=== PATIENT | female | born 1965 | race Caucasian/White ===

== ENCOUNTER → 2017-06-03 | Outpatient (CLI) | payer BC ==
[~2017-06-03] MED LIST: CLC100 PO; DRV100 PO; PROM25TA PO
[2017-06-03 12:36] LABS: BLOOD UREA NITROGEN 26 mg/dl (7-18); BUN/CREATININE RATIO 34.4 (10-20); CALCIUM 9.8 mg/dl (8.5-10.1); CARBON DIOXIDE 27 mmol/L (21-32); CHLORIDE 108 mmol/L (98-107); CREATININE 0.75 mg/dl (0.60-1.20); GLUCOSE 92 mg/dl (70-99); POTASSIUM 4.1 mmol/L (3.5-5.1); SODIUM 140 mmol/L (136-145)
[2017-06-03 13:00] LABS: LYME DISEASE AB IGG NEG (NEG); LYME DISEASE AB IGM NEG (NEG)
== END | disposition home or self-care (01) ==
LOC: C.LABPBG 07:54
PROVIDERS: ATTEND Chiropractor
DX: A69.20 Lyme disease, unspecified (principal)

== ENCOUNTER → 2017-06-11 | Outpatient (CLI) | payer BC ==
[2017-06-11 12:14] LABS: BASO % 0.5 %; BASO ABS # 0.04 K/uL (0-0.2); COMPLETE YES; EOS % 2.5 %; HEMATOCRIT 42.7 % (37-47); IG% 0.3 %; LYMPH % 41.7 %; LYMPH ABS # 3.05 K/uL (1.2-3.4); MEAN CELL VOLUME 93.8 fL (80-100); MEAN CORPUSCULAR HEMOGLOBIN 31.4 pg (25-34); MEAN CORPUSCULAR HGB CONC 33.5 g/dl (32-36); MEAN PLATELET VOLUME 9.8 fL (7.4-10.4); MONO % 4.5 %; NEUT % 50.5 %; PLATELET COUNT 245 K/uL (130-400); RED BLOOD COUNT 4.55 M/uL (4.2-5.4); WHITE BLOOD COUNT 7.32 K/uL (4.8-10.8)
[2017-06-11 12:43] LABS: ALB/GLOB RATIO 1.4 (0.9-2); ALT/SGPT 33 U/L (12-78); AST/SGOT 16 U/L (15-37); BLOOD UREA NITROGEN 17 mg/dl (7-18); BUN/CREATININE RATIO 21.6 (10-20); CALCIUM 9.5 mg/dl (8.5-10.1); CARBON DIOXIDE 28 mmol/L (21-32); CHLORIDE 109 mmol/L (98-107); CREATININE 0.77 mg/dl (0.60-1.20); GLUCOSE 89 mg/dl (70-99); POTASSIUM 3.7 mmol/L (3.5-5.1); SODIUM 141 mmol/L (136-145); URIC ACID 4.2 mg/dl (2.6-7.2)
[2017-06-11 12:54] LABS: ALKALINE PHOSPHATASE 91 U/L (45-117); C-REACTIVE PROTEIN < 0.29 mg/dl (0-0.29); THYROID STIMULATING HORMONE 0.675 uIu/ml (0.300-4.500)
[2017-06-11 18:54] LABS: LYME DISEASE AB IGG NEG (NEG); LYME DISEASE AB IGM NEG (NEG)
--- NOTE | 2017-06-28 06:41 | CODING QUERY MEDICAL NECESSITY ---
SUPPORTING DIAGNOSIS NEEDED Dr. Lockwood, A supporting diagnosis is required for the test/procedure performed on this patient in order for us to be reimbursed by the patient's insurance. Please provide a supporting diagnosis for the following test/procedure listed below next to the test name along with your signature. *If there is no additional diagnosis for this patient that would support the following test/procedure please document that below next to the test/procedure. Test(s)/Procedure(s) that require a supporting diagnosis: * ([id number]) VITAMIN D ASSAY DIAGNOSIS: * ([id number]) B12 VITAMIN LEVEL DIAGNOSIS: DATE OF SERVICE: 06/11/17 Provider Signature: Date: Thank you Darwin Mejia [facility] Information Management Once completed, please kindly fax back to [phone] For questions please call [phone]
== END | disposition home or self-care (01) ==
LOC: C.LABPBG 10:52
PROVIDERS: ATTEND Family Medicine
DX: M25.50 Pain in unspecified joint (principal); R53.83 Other fatigue; E55.9 Vitamin D deficiency, unspecified

== ENCOUNTER → 2017-06-18 | Outpatient (CLI) | payer BC | END | disposition home or self-care (01) | LOC: C.LABPBG 14:37 | PROVIDERS: ATTEND Family Medicine | DX: R76.8 Other specified abnormal immunological findings in serum (principal); J02.9 Acute pharyngitis, unspecified ==

== ENCOUNTER → 2017-07-09 | Outpatient (CLI) | payer BC | END | disposition home or self-care (01) | LOC: C.LABPBG 12:24 | PROVIDERS: ATTEND Family Medicine | DX: M25.50 Pain in unspecified joint (principal); Z86.79 Personal history of other diseases of the circulatory system ==

== ENCOUNTER → 2018-01-06 | Outpatient (CLI) | payer BC ==
[2018-01-06 16:54] LABS: BASO % 0.3 %; BASO ABS # 0.03 K/uL (0-0.2); EOS % 1.5 %; EOS ABS # 0.15 K/uL (0-0.5); HEMATOCRIT 44.2 % (37-47); IG# 0.03 K/uL (0.00-0.02); LYMPH ABS # 2.85 K/uL (1.2-3.4); MEAN CELL VOLUME 96.9 fL (80-100); MEAN CORPUSCULAR HEMOGLOBIN 32.9 pg (25-34); MEAN CORPUSCULAR HGB CONC 33.9 g/dl (32-36); MEAN PLATELET VOLUME 9.9 fL (7.4-10.4); MONO % 6.2 %; MONO ABS # 0.61 K/uL (0.11-0.59); NEUT % 62.7 %; NEUT ABS # 6.15 K/uL (1.4-6.5); PLATELET COUNT 251 K/uL (130-400); RED CELL DISTRIBUTION WIDTH CV 13.4 % (11.5-14.5); RED CELL DISTRIBUTION WIDTH SD 47.4 fL (36.4-46.3); WHITE BLOOD COUNT 9.82 K/uL (4.8-10.8)
[2018-01-06 17:23] LABS: BLOOD UREA NITROGEN 17 mg/dl (7-18); CALCIUM 9.5 mg/dl (8.5-10.1); CARBON DIOXIDE 26 mmol/L (21-32); CREATININE 0.78 mg/dl (0.60-1.20); GLUCOSE 93 mg/dl (70-99); POTASSIUM 3.6 mmol/L (3.5-5.1); SODIUM 140 mmol/L (136-145)
== END | disposition home or self-care (01) ==
LOC: C.LABPBG 12:58
PROVIDERS: ATTEND Orthopaedic Surgery Orthopaedic Surgery of the Spine
DX: M54.2 Cervicalgia (principal)

== ENCOUNTER 2018-01-20 05:47 | Observation (INO) | payer BC ==
[2018-01-14 13:27] VITALS: BMI 29.0
[~2018-01-20] VITALS: Ht 160 cm; Wt 75.0 kg
[2018-01-20] VITALS (15 sets, daily range): BP systolic 94–139; BP diastolic 56–78; PULSE 63–98; TEMP 36.2–36.8; O2SAT 90–100; Ht 160 cm; Wt 75.0 kg
[2018-01-20] MEDS ORDERED: GABAPENTIN 900 MG PO SCH (06:00)
[2018-01-20] MEDS ORDERED: LACTATED RINGER'S 1000ML 1,000 ML IV SCH (06:00)
[2018-01-20] MEDS ORDERED: ACETAMINOPHEN 500 MG TAB PO SCH (06:00)
[2018-01-20] MEDS ORDERED: CEFAZOLIN 1000MG IV PUSH 7.5 ML IV SCH (06:00)
[2018-01-20] MEDS ORDERED: CeleBREX 200 MG CAP PO SCH (06:00)
[2018-01-20] MEDS ORDERED: FENTANYL CITRATE INJ 50 MCG/1 ML 2 ML VIAL ONE ×2 (06:36→08:33)
[2018-01-20] MEDS ORDERED: MIDAZOLAM HCL 1 MG/ML 2ML VIAL ONE (06:36)
[2018-01-20] MEDS ORDERED: SODIUM CHLORIDE 0.9% PF 50 ML VIAL ONE (07:04)
[2018-01-20] MEDS ORDERED: BACITRACIN 50000 UNIT VIAL ONE (07:04)
[2018-01-20] MEDS ORDERED: EpHEDrine SULFATE INJ 50 MG/ML AMP IV PRN (07:30)
[2018-01-20] MEDS ORDERED: HYDROmorphone INJ 1 MG/ML SYR IV PRN (07:30)
[2018-01-20] MEDS ORDERED: PROMETHAZINE HCL INJ 6.25 MG in SODIUM CHLORIDE 0.9% 50ML 50 ML IV PRN (07:30)
[2018-01-20] MEDS ORDERED: ATROPINE SULFATE 0.1 MG/ML 5ML SYR IV PRN (07:30)
[2018-01-20] MEDS ORDERED: ONDANSETRON INJ 2 MG/ML 2 ML VIAL IV PRN ×2 (07:30→09:45)
--- NOTE | 2018-01-20 08:03 | History & Physical Bridge Note ---
H&P Re-Evaluation Bridge Note: I have examined the patient, reviewed the History & Physical and in the interval since the performance of the History & Physical I have noted the following changes of clinical significance: No changes noted
--- NOTE | 2018-01-20 08:04 | History and Physical ---
History & Physical Date Jan 20, 2018. Chief Complaint Neck and arm pain History of Present Illness The patient is a 52 year old female with complaints of neck and arm pain Additional History Hepatic Disease: No Endocrine Disorder: No Kidney Disease: No Hypertension: No Heart Disease: No Bleeding Tendencies: No Infectious Diseases: No Allergies Coded Allergies: No Known Allergies (Verified , 01/20/18) Home Medications Scheduled Docusate Sodium (Colace *), 100 MG PO BID Physical Examination Skin: warm/dry, no rash Eyes: normal inspection, EOMI, sclerae normal ENT: normal ENT inspection, pharynx normal Head: normocephalic, atraumatic Neck: supple, no adenopathy, trachea midline Respiratory/Chest: lungs clear, normal breath sounds, no respiratory distress Cardiovascular: regular rate, rhythm, no edema, no murmur Abdomen / GI: normal bowel sounds, non tender Back: normal inspection Extremities: normal inspection, normal range of motion Neurologic/Psych: no motor/sensory deficits, alert, normal reflexes, oriented x 3 Diagnosis Cervical spinal stenosis with radiculopathy Plan of Treatment ACDF C5-6 C6-7
[2018-01-20] MEDS ORDERED: HYDROmorphone INJ 2 MG/ML SYR/VIAL ONE ×2 (08:33→10:24)
[2018-01-20] MEDS ORDERED: FLOSEAL HEMOSTATIC MATRIX 10ML TOP ONE (09:37)
[2018-01-20] MEDS ORDERED: EpHEDrine SULFATE 50MG/5ML SYR ONE (09:40)
[2018-01-20] MEDS ORDERED: DEXAMETHASONE SOD INJ 4 MG/ML VIAL ONE (09:40)
[2018-01-20] MEDS ORDERED: LIDOCAINE HCL 2% 2 ML VIAL (20MG/ML) ONE (09:40)
[2018-01-20] MEDS ORDERED: PHENYLEPHRINE 100MCG/ML 5ML SYR ONE (09:40)
[2018-01-20] MEDS ORDERED: GLYCOPYRROLATE INJ 0.2 MG/ML VIAL ONE (09:41)
[2018-01-20] MEDS ORDERED: NEOSTIGMINE METHYLSULFATE 1 MG/ML 10ML VIAL ONE (09:41)
[2018-01-20] MEDS ORDERED: RANITIDINE HCL 25 MG/ML INJ ONE (09:41)
[2018-01-20] MEDS ORDERED: METOCLOPRAMIDE HCL INJ 5 MG/ML 2 ML VIAL ONE (09:41)
[2018-01-20] MEDS ORDERED: ONDANSETRON INJ 2 MG/ML 2 ML VIAL ONE (09:41)
[2018-01-20] MEDS ORDERED: PROPOFOL IV EMULSION 10 MG/ML 20 ML VIAL IV ONE (09:41)
--- NOTE | 2018-01-20 09:42 | [facility] Operative Report ---
Operative Report Operative Date Jan 20, 2018. Pre-Operative Diagnosis Cervical spinal stenosis with radiculopathy Post-Operative Diagnosis Cervical spinal stenosis with radiculopathy Procedure(s) Performed 1. Anterior cervical discectomy bilateral foraminotomies C5-6 C6-7. #2 anterior cervical arthrodesis C5-6 C6-7. #3 placement of cortical allograft filled with DBM 7 mm in height at C5-6 8 mm at C6-7. #4 application of 5 complete and screws C5-C7. Surgeon Tabatha Projection Welding Machine Operator Surgeon(s) Mazin Estimated Blood Loss 25 cc Description of Procedure Patient was met with preoperatively case discussed all questions addressed. After informed consent obtained patient was taken to the operative suite underwent intubation and placed in the supine position the Joaquin table with head Ulloa headholder. All bony prominences well-padded eyes inspected to ensure no external pressure placed upon the. This point the anterior spine was prepped and draped in normal sterile fashion. Sharp dissection with the assistance of bipolar cautery was performed on down to and exposing the anterior cervical spine from C5-C7. Verify the position with fluoroscopy to complete discectomy of C5-6 was then performed out to the uncovertebral joints bilaterally. This included removal of all posterior annular fibers longitudinal ligament and bilateral foraminotomies to address disc herniation and foraminal. After this complete and plates burred to subcortical bleeding bone and a 7 mm cortical allograft with DBM tapped in position. Then proceeded C6-7 again complete discectomy performed up to the uncovertebral joints bilaterally this did include removal of all posterior annular fibers longitudinal ligament and bilateral foraminotomies. The endplates were burred to subcortical bleeding bone and an 8 mm cortical allograft filled DBM tapped in position. All distracting apparatus was removed and a beal plate and screws applied with the assistance of fluoroscopy. Incision was then copiously irrigated explored to ensure there is no damage to surrounding structures remaining bleeding. 10 round DURAN drain inserted. Incision was then closed with 2 Vicryl in the fascia and 4 Monocryl for fashion closure Steri-Strips sterile dressings placed. Patient weakened the PACU stable discrete please note Nai Retana was present throughout the entire procedure involved in patient positioning complex portions of the surgery and fashion closure. I attest to the content of the Intraoperative Record and any orders documented therein. Any exceptions are noted below.
[2018-01-20] MEDS ORDERED: ACETAMINOPHEN IV 1,000 MG in EMPTY BAG 0 ML IV PRN (09:45)
[2018-01-20] MEDS ORDERED: DO NOT ADMINISTER FLU VACCINE PRN (09:45)
[2018-01-20] MEDS ORDERED: MAGNESIUM HYDROXIDE SUSP 30 ML UDC PO PRN (09:45)
[2018-01-20] MEDS ORDERED: RACEPINEPHRINE 2.25% NEBU SOLN 0.5 ML VIAL INH PRN (09:45)
[2018-01-20] MEDS ORDERED: DO NOT ADMINISTER PNEUMOCOCCAL VACCINE PRN (09:45)
[2018-01-20] MEDS ORDERED: CEFAZOLIN IV 1,000 MG in DEXTROSE 5% 50ML 50 ML IV SCH (09:45)
[2018-01-20] MEDS ORDERED: LORAZEPAM 0.5 MG TAB PO PRN (09:45)
[2018-01-20] MEDS ORDERED: LORAZEPAM INJ 0.5 MG in SYRINGE 0.75 ML IV PRN (09:45)
[2018-01-20] MEDS ORDERED: NALOXONE HCL 0.4 MG/1 ML VIAL/CARP IV PRN (09:45)
[2018-01-20] MEDS ORDERED: DEXAMETHASONE INJ 8 MG in SYRINGE 0 ML IV PRN (09:45)
--- NOTE | 2018-01-20 09:58 | DIAGNOSTIC IMAGING REPORT ---
INTRAOPERATIVE RADIOGRAPHS CLINICAL HISTORY: C5-C7 spinal fusion. Fluoroscopy time: 9 seconds. FINDINGS: 3 spot fluoroscopic views of the cervical spine are presented. An endotracheal tube is in place. There are postoperative changes from discectomy at C5-C6 and C6-C7 with anterior fusion at these levels. The orthopedic hardware appears intact. IMPRESSION: Intraoperative images from C5 -C7 spinal fusion as above. Electronically signed by: Vijay Acosta M.D. 01/20/2018 9:57 AM Dictated Date/Time: 01/20/2018 9:56 AM
[2018-01-20] MEDS ORDERED: IV FLUIDS COMPLETED PRN (10:00)
[2018-01-20] MEDS: FENTANYL CITRATE INJ 50 MCG/1 ML 2 ML VIAL IV PRN ×4 (10:02→10:18)
[2018-01-20] MEDS ORDERED: NURSING VERBAL MED ORDER ONE (10:15)
--- NOTE | 2018-01-20 11:57 | Anesthesiology Progress Note ---
Anesthesia Post Op Note Date & Time Jan 20, 2018 at 11:57 Vital Signs Pain Intensity: 5.0 Vital Signs Past 12 Hours Date Time Temp Pulse Resp B/P (MAP) Pulse Ox O2 Delivery O2 Flow Rate FiO2 01/20/18 11:48 36.3 75 17 107/70 96 Nasal Cannula 4.0 Humidified Oxygen 01/20/18 11:47 86 12 95 Nasal Cannula 4.0 01/20/18 11:20 95 Nasal Cannula 4.0 Humidified Oxygen 01/20/18 11:20 95 Nasal Cannula 4.0 Humidified Oxygen 01/20/18 11:20 36.2 98 14 107/69 (82) 90 Nasal Cannula 4.0 Humidified Oxygen 01/20/18 10:58 67 16 94 01/20/18 10:58 67 16 01/20/18 10:56 102/65 01/20/18 10:53 64 14 95 01/20/18 10:53 64 14 01/20/18 10:51 103/57 01/20/18 10:48 82 14 92 01/20/18 10:48 77 14 01/20/18 10:43 66 16 96 01/20/18 10:43 66 16 01/20/18 10:41 118/71 01/20/18 10:38 78 18 01/20/18 10:38 77 18 97 01/20/18 10:37 99 23 01/20/18 10:37 98 23 96 01/20/18 10:36 130/69 01/20/18 10:32 74 17 01/20/18 10:32 75 17 96 01/20/18 10:31 108/62 01/20/18 10:27 81 15 97 01/20/18 10:27 82 15 01/20/18 10:26 129/63 01/20/18 10:24 69 16 01/20/18 10:24 69 16 96 01/20/18 10:22 109/65 01/20/18 10:19 77 16 01/20/18 10:19 81 16 96 01/20/18 10:16 123/75 01/20/18 10:14 73 12 97 01/20/18 10:14 73 12 01/20/18 10:11 115/68 01/20/18 10:09 100 21 97 01/20/18 10:09 100 21 01/20/18 10:06 119/76 4/26/18 10:04 98 14 98 01/20/18 10:04 97 14 01/20/18 10:01 124/77 01/20/18 09:59 102 15 98 01/20/18 09:59 103 15 01/20/18 09:56 117/77 01/20/18 09:54 36.0 95 14 112/80 98 Oxymask 10 01/20/18 06:08 36.6 76 20 139/78 (98) 100 Room Air Notes Mental Status: alert / awake / arousable, participated in evaluation Pt Amnestic to Procedure: Yes Nausea / Vomiting: adequately controlled Pain: adequately controlled Airway Patency, RR, SpO2: stable & adequate BP & HR: stable & adequate Hydration State: stable & adequate Anesthetic Complications: no major complications apparent
[2018-01-20] MEDS ORDERED: SCOPOLAMINE 1.5 MG TDSY TD SCH (12:00)
[2018-01-20] MEDS: SODIUM CHLORIDE 0.9% 1000ML 1,000 ML IV SCH ×2 (12:01→20:39)
[2018-01-20] MEDS ORDERED: ROCURONIUM BROMIDE 10 MG/ML 5 ML VIAL IV ONE (12:40)
[2018-01-20] MEDS ORDERED: ESMOLOL HCL 10 MG/ML 10 ML VIAL ONE (12:40)
[2018-01-20] MEDS ORDERED: RXC5 PO (13:33)
--- NOTE | 2018-01-20 13:33 | Discharge Instructions ---
Discharge Instructions Date of Service Jan 20, 2018. Admission Reason for Admission: Cervical Spinal Stenosis Discharge Discharge Diagnosis / Problem: cervical stenosis Discharge Goals Goal(s): Improve function Activity Recommendations Activity Limitations: per Instructions/Follow-up section . Instructions / Follow-Up Instructions / Follow-Up ACTIVITY RECOMMENDATIONS: SELF CARE INSTRUCTIONS AFTER CERVICAL FUSIONS 1. No smoking. Smoking drastically decreases the chance of a solid fusion. 2. No bending, lifting more than 5 pounds, or twisting (roll like a log when turning in bed). 3. You may shower 3 days after surgery. Thoroughly dry wound. Do not soak in the tub. 4. Cervical collar: Must be worn at all times including sleeping. You may remove the brace only to bath, eat and if you are sitting in a recliner. 5. Please walk as much as you can for exercise. Gradually increase the distance that you walk as your endurance increases. SPECIAL CARE INSTRUCTIONS: VERY IMPORTANT TO READ AND REVIEW A. Do not take any anti-inflammatory medications (i.e. Indocin, Advil, Aspirin, Naprosyn, Aleve, Motrin, etc.) as these may inhibit the chance of a solid fusion. Tylenol is okay to take. B. Your surgical incision has been closed with a cosmetic suture under the skin that will dissolve in about 6 weeks. In 14 days, you can use a pair of clean scissors and cut the suture that is left outside of the skin at the ends of your incision. C. Complications are uncommon, but please contact us if you have any signs or symptoms of: 1. wound infection (fever higher than 102.5 degrees F, redness, separation of wound, drainage, or increasing pain from the incision) 2. blood clots in legs (pain, swelling, redness and warmth in legs) 3. urinary tract infection (fever higher than 102.5 degrees, burning upon urination or increased frequency of urination) 4. nerve problems (inability to walk on your toes or heels, numbness, loss of bowel or bladder control) 5. any other symptoms that concern you. D. Please call the office at if you have any concerns or questions about your operation or recovery. MANAGING PAIN AFTER SPINAL SURGERY 1. Narcotic medication is intended for short-term use and will be provided for surgical pain. Surgical pain usually lasts for a period of 4-6 weeks. Narcotic medication includes Percocet, Vicodin, Darvocet, Tylenol #3 or Lortab. 2. Longer-term pain is more appropriately treated with non-narcotic medication such as Tylenol ES. 3. Muscle spasm is not appropriately treated with narcotics. Muscle relaxers such as Soma, Flexeril or Skelaxin can be used along with Tylenol ES. 4. Remember that we all live with some "aches and pains". This is not unusual or uncommon after an injury or as we get older. 5. We will provide appropriate medication within the normal guidelines of their prescribed use. We will also be very cautious and aware of potential abuse and extended duration of patients' medication needs. 6. Please allow 2-3 days to process refills. Prescriptions will not be mailed but must be picked up at the office. FOLLOW UP VISIT: Keep your scheduled follow-up appointment. Any questions, please call the office at . Current Hospital Diet Patient's current hospital diet: Clear Liquid Diet Discharge Diet Recommended Diet: Regular Diet Procedures Procedures Performed: 1. Anterior cervical discectomy bilateral foraminotomies C5-6 C6-7. #2 anterior cervical arthrodesis C5-6 C6-7. #3 placement of cortical allograft filled with DBM 7 mm in height at C5-6 8 mm at C6-7. #4 application of 5 complete and screws C5-C7. Pending Studies Studies pending at discharge: no Medical Emergencies . Who to Call and When: Medical Emergencies: If at any time you feel your situation is an emergency, please call 911 immediately. . Non-Emergent Contact Non-Emergency issues call your: Primary Care Provider . "Provider Documentation" section prepared by León Mays. .
[2018-01-20] MEDS: DiphenhydrAMINE HCL 50 MG/ML VIAL IV PRN ×2 (14:50→22:00)
[2018-01-20] MEDS: HYDROmorphone INJ 0.5 MG/0.5 ML SYR IV PRN ×2 (14:51→22:01)
[2018-01-20] MEDS: CHECK SCOPOLAMINE PATCH PLACEMENT SCH ×2 (15:58→23:54)
[2018-01-20] MEDS: CEFAZOLIN IV 1,000 MG in SYRINGE 0 ML IV SCH ×2 (16:00→23:49)
[2018-01-20] MEDS: DOCUSATE SODIUM 100 MG CAP PO SCH (20:37)
[2018-01-21] VITALS (10 sets, daily range): BP systolic 93–119; BP diastolic 53–68; PULSE 57–79; TEMP 36.6–36.9; O2SAT 93–98
[2018-01-21] MEDS: OXYCODONE HCL IR 5 MG TAB (IMMEDIATE RELEASE) PO PRN ×2 (04:10→08:21)
[2018-01-21] MEDS: DOCUSATE SODIUM 100 MG CAP PO SCH (08:20)
[2018-01-21] MEDS: CEFAZOLIN IV 1,000 MG in SYRINGE 0 ML IV SCH (08:20)
[2018-01-21] MEDS: CHECK SCOPOLAMINE PATCH PLACEMENT SCH (08:21)
[2018-01-21] MEDS: DiphenhydrAMINE HCL 50 MG/ML VIAL IV PRN (11:03)
--- NOTE | 2018-01-21 14:57 | Discharge Summary ---
Orthopedic Discharge Summary Admission Date/Reason Jan 20, 2018 at 09:45 Cervical Spinal Stenosis. Discharge Date/Disposition Jan 21, 2018 Home Diagnosis Principal Diagnosis: Cervical spinal stenosis Admission Physical Exam As per Admitting History & Physical. Hospital Course Patient underwent anterior cervical discectomy and fusion tolerated as well as taken to the orthopedic floor postoperatively. Postop day #1 she was swallowing well. She had no hoarseness. Left arm symptoms markedly improved. She is neurologically intact comfortable and subsequently discharged home. Discharge orders and instructions found in the chart for further review. Discharge Instructions Please refer to the electronic Patient Visit Report (Discharge Instructions) for additional information.
[2018-01-22] MEDS ORDERED: BISACODYL 5 MG TABEC PO PRN (06:00)
[2018-01-22] MEDS ORDERED: BISACODYL 10 MG SUPP PR PRN (06:00)
[2018-01-23] MEDS ORDERED: POLYETHYLENE (MIRALAX) 17 GM PACK PO SCH (09:00)
== END 2018-01-21 11:23 | disposition home or self-care (01) ==
LOC: C.ACU 05:47 → C.3E 09:45 → ENRESERV 10:48
PROVIDERS: ADMIT Orthopaedic Surgery Orthopaedic Surgery of the Spine; ATTEND Orthopaedic Surgery Orthopaedic Surgery of the Spine
DX: M48.02 Spinal stenosis, cervical region (principal); M54.12 Radiculopathy, cervical region; K21.9 Gastro-esophageal reflux disease without esophagitis; M19.90 Unspecified osteoarthritis, unspecified site; Z87.442 Personal history of urinary calculi; F41.9 Anxiety disorder, unspecified; F32.9 Major depressive disorder, single episode, unspecified; E55.9 Vitamin D deficiency, unspecified; F17.200 Nicotine dependence, unspecified, uncomplicated

== ENCOUNTER 2022-06-14 08:18 | Observation (INO) ==
--- NOTE | 2022-06-14 08:32 | Emergency Department Note ---
Impression & Plan Intractable low back pain, Paresthesia of right leg, Neural foraminal stenosis of lumbar spine ED Provider Note NAME: JULIO C MUHAMMAD AGE: 57 SEX: F : 1965 ARRIVES VIA: Walk-In INFORMANT: Patient, ED PROVIDER(S): Tato Solis MD Chief Complaint: Back pain HPI: Patient presents due to concern for right-sided lower back pain ongoing x1 week but acutely worse this morning. Patient denies any trauma increase activity heavy lifting twisting or turning. The patient states that she does have some numbness in the right lower extremity which stays more anterior down the leg. The patient had been taking some tramadol and Tylenol but without significant improvement in symptoms. The patient describes it as achy occasionally sharp. Patient denies any chest pains or shortness of breath. The patient is a smoker. Patient denies any saddle anesthesia bowel or bladder incontinence or retention. Patient denies any weakness. ROS: See HPI for pertinent positives and negatives. A total of 10 systems were reviewed and otherwise negative. Past medical history: See below Surgical history: See below Social history: See below Physical Exam: GENERAL: NAD, wearing a mask, non-toxic. EYE EXAM: Normal conjunctiva. PERRL, no anisocoria and EOM's grossly intact w/o pain. NECK: Supple, no nuchal rigidity, no adenopathy, non-tender. No signs of meningismus. FROM of the neck with good chin to chest and neck extension. No stridor. LUNGS: Clear to auscultation. Normal chest wall mechanics. HEART: NSR, no MRG. ABDOMEN: Abdomen soft, non-tender, normo-active bowel sounds, no masses, no rebound or guarding. BACK: Mild right lumbar paraspinal discomfort, no midline L-spine or thoracic TTP. SKIN: No rashes and no bruising. UPPER EXTREMITIES: Upper extremities are grossly normal. LOWER EXTREMITIES: Grossly normal, no edema. Positive opposite straight leg raise and positive straight leg raise of the right lower extremity. No saddle anesthesia. NEURO EXAM: A&O x3, cranial nerves II-XII grossly intact, normal speech, moves all 4 extremities. Differential diagnoses: Musculoskeletal, disc herniation, fracture, metastatic disease, cord compression, discitis, sciatica, cauda equina, infection, aortic disease, renal colic, gastrointestinal, as well as other pathologies. Course: Patient was seen and evaluated the bedside. Full history physical exam was performed. Imaging Studies: See Below Cardiac monitoring: An order was placed for continuous cardiac monitoring. The monitor shows a rate of 88 with sinus rhythm. MDM: Patient presented due to concern for back pain. The patient initially had a CT of the lumbar spine completed and was given medications including IV morphine p.o. Tylenol IV Toradol and methylprednisolone. Upon reassessment the patient did not have significant improvement in symptoms. CT thoracic spine was negative. The patient was ordered to abhay Christianson. Upon subsequent reassessment she had no improvement in symptoms. I did offer to try p.o. Valium but the pa jose miguel does not think that she would be ambulatory. Given the patient's significant discomfort I did order an MRI of the back and did speak the on-call hospitalist the ALEKSEY Giron and the patient was admitted by Dr. Gama. MRI does show multilevel degenerative changes moderate left and mild right neuroforaminal stenosis. Blood work showed a normal white count H&H and platelet count the patient's kidney function was unremarkable. Past Med/Surg History Medical History Cervical stenosis of spinal canal History of parotitis Lumbar spondylosis Migraine without aura Osteoarthritis Recurrent cold sores Rheumatic fever Sjogrens syndrome Surgical History History of hernia repair History of hysterectomy still w/ ovary History of kidney surgery L ureter transplant Status post cervical spinal fusion (01/20/18) Family History Mother Hypertension Breast cancer Diabetes Father No known health problems Denies family history of Ovarian cancer Prostate cancer Myocardial infarction Colorectal cancer Social History Smoking Status: Current every day smoker packs per day: 0.5; Second Hand Exposure: Yes; Hx Alcohol Use: No Hx Substance Use: No Preferred Language: Swedish Communication Ability: Effective Visual Impairment: No Limitations Hearing Ability: Normal Dermatologist And Dermatopathologist Required: No Beliefs That Will Affect Care: None marital status: Current Living Situation: Spouse and Family current occupational status: employed Feels Safe at Home: Yes caffeine: Yes Dental Care, Regularly: Yes Physical Activity Frequency: Daily Seatbelt Use: always Allergies Allergies Allergy/AdvReac Type Severity Reaction Status Date / Time No Known Allergies Allergy Unknown Verified 06/04/22 11:10 Home Meds Home Medications Medication Instructions Recorded Confirmed cholecalciferol (vitamin D3) See Rx Instructions PO .COMPLEX 05/10/19 06/14/22 [Vitamin D3] duloxetine 30 mg capsule,delayed 30 mg PO .COMPLEX 02/27/22 06/14/22 release duloxetine 60 mg capsule,delayed 60 mg PO .COMPLEX 02/27/22 06/14/22 release Previous Rx's Medication Instructions Recorded pantoprazole 40 mg tablet,delayed 40 mg PO DAILY #90 tabs 09/04/20 release diclofenac sodium 75 mg 75 mg PO BID PRN pain #60 tabs 06/04/22 tablet,delayed release methylprednisolone 4 mg tablets in See Rx Instructions .Route 06/04/22 a dose pack (Medrol (Mateusz)) .COMPLEX #21 ea cyclobenzaprine 5 mg tablet 5 mg PO TID PRN muscle spasm #30 06/09/22 tabs tramadol 50 mg tablet 50 mg PO Q8H PRN pain #20 tabs 06/12/22 Results & Data (ED) Vital Signs Vital Signs - 24 hr 06/14/22 08:24 06/14/22 10:11 06/14/22 10:11 Temperature 36.6 C Temperature Source Temporal Artery Scan Pulse Rate 97 H Pulse Rate [Finger] 102 H Respiratory Rate 18 18 Respiratory Effort / Characteristics Non-Labored Respiratory Depth Normal Blood Pressure 136/77 Blood Pressure [Right Arm] 156/91 H Blood Pressure Mean 96 Blood Pressure Mean [Right Arm] 112 Blood Pressure Position Sitting Pulse Oximetry 98 98 99 Oxygen Delivery Method Room Air Room Air Room Air Sepsis Recent Fever Within 48 Hours No Sepsis New/Unexplained Change in Mental Status No Sepsis Action Taken by Nursing No Action Required Home Medications Current Medication List: was personally reviewed by me Laboratory Data Attestation: I reviewed the patient's lab results. Result diagrams: 06/14/22 11:35 06/14/22 11:35 Lab Results 06/14/22 06/14/22 06/14/22 Range/Units 11:35 11:35 11:35 WBC 10.54 (4.8-10.8) K/ul RBC 4.36 (3.93-5.22) M/uL Hgb 13.9 (12.0-16.0) g/dl Hct 42.8 (34.1-44.9) % MCV 98.2 (80.0-100.0) fL MCH 31.9 (25.0-34.0) pg MCHC 32.5 (32.0-36.0) g/dL RDW Std Deviation 47.0 H (36.4-46.3) fL RDW Coeff of Randy 13.1 (11.5-14.5) % Plt Count 244 (130-400) K/uL MPV 9.1 L (9.4-12.3) fL Immature Gran % (Auto) 0.5 % Neut % (Auto) 79.8 % Lymph % (Auto) 15.7 % Cabell % (Auto) 2.6 % Eos % (Auto) 0.9 % Baso % (Auto) 0.5 % Neut # (Auto) 8.42 H (1.4-6.5) K/uL Lymph # (Auto) 1.66 (1.2-3.4) K/uL Cabell # (Auto) 0.27 (0.24-0.82) K/uL Eos # (Auto) 0.09 (0-0.50) K/uL Baso # (Auto) 0.05 (0-0.2) K/uL Immature Gran # (Auto) 0.05 H (0.00-0.02) K/uL ESR 16 (0-30) mm/hr Sodium 139 (136-145) mmol/L Potassium 4.2 (3.5-5.1) mmol/L Chloride 105 (98-107) mmol/L Carbon Dioxide 25 (21-32) mmol/L Anion Gap 9 (3-11) BUN 19 (6-23) mg/dl Creatinine 0.68 (0.6-1.2) mg/dl Est Cr Clr Drug Dosing 90.7 ml/min Est GFR ( Amer) 112.5 ml/min Est GFR (Non-Af Amer) 97.1 ml/min BUN/Creatinine Ratio 27.9 H (10-20) Glucose 103 H (70-99(Fasting)) mg/dl Calcium 9.5 (8.5-10.1) mg/dl C-Reactive Protein (0-0.5) mg/dl SARS-CoV-2, RNA, NAAT (NEGATIVE) 06/14/22 06/14/22 Range/Units 11:35 11:40 WBC (4.8-10.8) K/ul RBC (3.93-5.22) M/uL Hgb (12.0-16.0) g/dl Hct (34.1-44.9) % MCV (80.0-100.0) fL MCH (25.0-34.0) pg MCHC (32.0-36.0) g/dL RDW Std Deviation (36.4-46.3) fL RDW Coeff of Randy (11.5-14.5) % Plt Count (130-400) K/uL MPV (9.4-12.3) fL Immature Gran % (Auto) % Neut % (Auto) % Lymph % (Auto) % Cabell % (Auto) % Eos % (Auto) % Baso % (Auto) % Neut # (Auto) (1.4-6.5) K/uL Lymph # (Auto) (1.2-3.4) K/uL Cabell # (Auto) (0.24-0.82) K/uL Eos # (Auto) (0-0.50) K/uL Baso # (Auto) (0-0.2) K/uL Immature Gran # (Auto) (0.00-0.02) K/uL ESR (0-30) mm/hr Sodium (136-145) mmol/L Potassium (3.5-5.1) mmol/L Chloride (98-107) mmol/L Carbon Dioxide (21-32) mmol/L Anion Gap (3-11) BUN (6-23) mg/dl Creatinine (0.6-1.2) mg/dl Est Cr Clr Drug Dosing ml/min Est GFR ( Amer) ml/min Est GFR (Non-Af Amer) ml/min BUN/Creatinine Ratio (10-20) Glucose (70-99(Fasting)) mg/dl Calcium (8.5-10.1) mg/dl C-Reactive Protein < 0.50 (0-0.5) mg/dl SARS-CoV-2, RNA, NAAT NEGATIVE (NEGATIVE) Administered Medications Oxycodone HCl (Oxycodone Hcl Ir 5 Mg Tab (Immediate Release)) 5 mg PO Q6 PRN PRN Reason: Moderate Pain Stop: 06/28/22 15:55 Last Admin: 06/14/22 16:35 Dose: 5 mg Documented By: KTS Discontinued Medications Acetaminophen (Acetaminophen 500 Mg Tab) 1,000 mg PO NOW STA Stop: 06/14/22 08:42 Last Admin: 06/14/22 09:12 Dose: 1,000 mg Documented By: BAUTISTA Diazepam (Diazepam 5 Mg/Ml Inj 10ml Vial) 2 mg IV NOW STA Stop: 06/14/22 11:18 Last Admin: 06/14/22 11:29 Dose: Not Given Documented By: PARK Diazepam (Diazepam 2 Mg Tablet) 2 mg PO NOW ONE Stop: 06/14/22 11:28 Last Admin: 06/14/22 11:33 Dose: 2 mg Documented By: PARK Ketorolac Tromethamine (Ketorolac Tromethamine 15 Mg/Ml Vial) 10 mg IV ONE STA Stop: 06/14/22 08:42 Last Admin: 06/14/22 09:11 Dose: 10 mg Documented By: BAUTISTA Lidocaine (Lidocaine 5% 1 Patch) 1 patch TD NOW STA Stop: 06/14/22 08:42 Last Admin: 06/14/22 09:10 Dose: 1 patch Documented By: BAUTISTA Methylprednisolone (Methylprednisolone 125 Mg/2 Ml Vial) 60 mg IV NOW STA Stop: 06/14/22 08:42 Last Admin: 06/14/22 09:10 Dose: 60 mg Documented By: BAUTISTA Miscellaneous (Remove Lidoderm Patch) 1 each N/A DAILY@2100 MAXWELL Stop: 07/14/22 20:59 Last Admin: 06/14/22 11:33 Dose: 1 each Documented By: PARK Morphine Sulfate (Morphine Sulfate 4 Mg/Ml 1 Ml Carp\Vial) 4 mg IV NOW STA Stop: 06/14/22 08:42 Last Admin: 06/14/22 09:11 Dose: 4 mg Documented By: BAUTISTA Morphine Sulfate (Morphine Sulfate 4 Mg/Ml 1 Ml Carp\Vial) 3 mg IV NOW STA Stop: 06/14/22 12:04 Last Admin: 06/14/22 13:05 Dose: 3 mg Documented By: PARK Ondansetron HCl (Ondansetron Inj 2 Mg/Ml 2 Ml Vial) 4 mg IV NOW STA Stop: 06/14/22 08:42 Last Admin: 06/14/22 09:11 Dose: 4 mg Documented By: TRH Oxycodone HCl (Oxycodone Hcl Ir 5 Mg Tab (Immediate Release)) 5 mg PO NOW STA Stop: 06/14/22 10:32 Last Admin: 06/14/22 10:44 Dose: 5 mg Documented By: TRH Imaging Data Radiologist's Impression: Lumbar Spine CT 06/14/22 08:41 CT lumbar spine wo con CLINICAL HISTORY: R sided paraspinal pain, numbness anterior leg TECHNIQUE: Multidetector row helical CT of the lumbar spine was performed without administration of intravenous contrast. Coronal and sagittal reformations were obtained. Automated dose lowering techniques and/or adjustment according to patient size were utilized for this exam. CT DOSE: 668.32 mGy.cm Comparison: None available at the time of this dictation. FINDINGS: For counting purposes, the last complete intervertebral disc space is considered L5-S1. No acute fractures are identified. Degenerative changes are noted in the visu alized spine. Vertebral body alignment is within normal limits. Surrounding soft tissues are unremarkable. IMPRESSION: No evidence of acute bony injury. If there is concern for disc disease, MRI can be performed. ACT 112: Negative or not required by law. Electronically signed by: Heraclio Powell M.D. 06/14/2022 10:05 AM Lumbar Spine MRI 06/14/22 11:17 MR lumbar spine wo con CLINICAL HISTORY: L LBP, leg numbness, intractable pain TECHNIQUE: Multiplanar sequences through the lumbar spine were obtained, without intravenous contrast. Comparison: None available at the time of this dictation. FINDINGS: The alignment is anatomical. L1-L2: Minimal disc bulge is noted. L2-L3: Mild posterior disc bulge is seen without significant canal or neuroforaminal stenosis. L3-L4: There is a broad-based posterior disc bulge with resulting mild canal stenosis and bilateral neural foraminal stenosis. L4-L5: Broad-based posterior disc bulge without significant canal stenosis but with mild bilateral neuroforaminal stenosis. L5-S1: Broad-based posterior disc bulge, left greater than right with moderate left and mild right neural foraminal stenosis and no significant canal stenosis. The spinal ligaments are intact, without evidence of disruption or abnormal signal intensity. The spinal cord is normal in signal intensity and there is no evidence of cord contusion. There is no evidence of an extradural, intradural, extramedullary or intramedullary lesion. Visualized soft tissues are normal. IMPRESSION: Multilevel degenerative changes as above. At L5-S1, there is moderate left and mild right neural foraminal stenosis. ACT 112: Negative or not required by law. Electronically signed by: Heraclio Powell M.D. 06/14/2022 2:24 PM Discharge Plan Visit Data Chief Complaint: Back Injury/Pain Stated Complaint: BACK PAIN ED Provider: Tato Solis Discharge Problem: Intractable low back pain, Paresthesia of right leg, Neural foraminal stenosis of lumbar spine Patient Disposition: Admitted As Inpatient Discharge Instructions Interventions: ED Discharge Assessment Last Done: 06/14/22 15:29
[2022-06-14] MEDS ORDERED: ONDANSETRON INJ 2 MG/ML 2 ML VIAL IV STA (08:41)
[2022-06-14] MEDS ORDERED: KETOROLAC TROMETHAMINE 15 MG/ML VIAL IV STA (08:41)
[2022-06-14] MEDS ORDERED: MoRPHine SULFATE 4 MG/ML 1 ML CARP\\VIAL IV STA ×2 (08:41→12:03)
[2022-06-14] MEDS ORDERED: ACETAMINOPHEN 500 MG TAB PO STA (08:41)
[2022-06-14] MEDS ORDERED: LIDOCAINE 5% 1 PATCH TD STA (08:41)
[2022-06-14] MEDS ORDERED: methylPREDNISolone 125 MG/2 ML VIAL IV STA (08:41)
--- NOTE | 2022-06-14 10:07 | CT Scan Report ---
CT lumbar spine wo con CLINICAL HISTORY: R sided paraspinal pain, numbness anterior leg TECHNIQUE: Multidetector row helical CT of the lumbar spine was performed without administration of i ntravenous contrast. Coronal and sagittal reformations were obtained. Automated dose lowering techniq ues and/or adjustment according to patient size were utilized for this exam. CT DOSE: 668.32 mGy.cm Comparison: None available at the time of this dictation. FINDINGS: For counting purposes, the last complete intervertebral disc space is considered L5-S1. No acute fractures are identified. Degenerative changes are noted in the visualized spine. Vertebral body alignment is within normal limits. Surrounding soft tissues are unremarkable. IMPRESSION: No evidence of acute bony injury. If there is concern for disc disease, MRI can be performed. ACT 112: Negative or not required by law. Electronically signed by: Heraclio Powell M.D. 06/14/2022 10:05 AM
[2022-06-14] MEDS ORDERED: oxyCODONE HCL IR 5 MG TAB (IMMEDIATE RELEASE) PO STA (10:31)
[2022-06-14] MEDS ORDERED: diazePAM 2 MG TABLET PO ONE (11:27)
[2022-06-14 11:48] LABS: Basophils # (auto) 0.05 K/uL (0-0.2); Basophils % (auto) 0.5 %; Eosinophils # (auto) 0.09 K/uL (0-0.50); Eosinophils % (auto) 0.9 %; Hematocrit (blood only) 42.8 % (34.1-44.9); Hemoglobin 13.9 g/dl (12.0-16.0); Immature Granulocytes # (auto) 0.05 K/uL (0.00-0.02); Immature Granulocytes % (auto) 0.5 %; Lymphocytes # (auto) 1.66 K/uL (1.2-3.4); Lymphocytes % (auto) 15.7 %; Mean Corpuscular Hemoglobin 31.9 pg (25.0-34.0); Mean Corpuscular Hgb Conc 32.5 g/dL (32.0-36.0); Mean Corpuscular Volume 98.2 fL (80.0-100.0); Mean Platelet Volume 9.1 fL (9.4-12.3); Monocytes # (auto) 0.27 K/uL (0.24-0.82); Monocytes % (auto) 2.6 %; Neutrophils # (auto) 8.42 K/uL (1.4-6.5); Neutrophils % (auto) 79.8 %; Platelet Count 244 K/uL (130-400); RDW Coefficient of Variation 13.1 % (11.5-14.5); Red Blood Count 4.36 M/uL (3.93-5.22); White Blood Count 10.54 K/ul (4.8-10.8)
[2022-06-14 12:07] LABS: BUN Creatinine Ratio 27.9 (10-20); Calcium 9.5 mg/dl (8.5-10.1); Creatinine Clr Calc Pharmacy 90.7 ml/min; Est GFR (African American) 112.5 ml/min; Est GFR (Non-African American) 97.1 ml/min; Potassium 4.2 mmol/L (3.5-5.1)
--- NOTE | 2022-06-14 12:45 | History & Physical Report ---
Date of Service June 14, 2022 Assessment & Plan (1) Acute radicular low back pain: Plan: Patient with acute on now chronic low back pain with radiculopathy to right leg - Pain starts in her right lower back and SI joint radiates into buttocks, and then down right leg, acute worsening with radicular pain and spasms - Multi-tiered approach initiated in EMD and will continue this - Tylenol - Toradol 15mg IV scheduled q6 for 24 hours - Solumederol 40mg IV q6 - Oxy 5 - Tramadol continue - Re- initiate gabapentin - Valium 5mg PO q6 prn - adjunctive therapy with Cymbalta - Heat therapy - Morphine for severe pain - MRI of lumbar/sacrum spine pending - Appreciate pain management evaluation - Will consult ortho-spine for evaluation (2) Gastroesophageal reflux: Plan: Continue PPI daily if sx not controlled with steroid and Toradol initiation advance to BID therapy (3) HTN, goal below 140/90: Plan: Not on current therapy- trend while in house- likely worsened by acute pain - follow up with PCP for mgmt (4) Vitamin D deficiency: Plan: continue supplementation (5) Anxiety and depression: Plan: Continue Cymbalta as well for pain adjunct (6) Osteoarthritis: Plan: Follows with rheumatology appears diagnosed in 2019 with her history of myalgias, dry eyes, mica and positive RF supportive care as above (7) Sjogrens syndrome: Plan: As above History of Present Illness Primary Care Provider: Aurora Lockwood, DO 57 YOF with medical history of: Sjogren's syndrome, HTN, Anxiety depression, GERD, HTN, Mitral regurge, Rheumatic Fever, Cervical stenosis with surgery, OA + Rhematoid factor, smoker. Patient comes to the EMD today for increase in lower right sided back pain, with pain radiating down her right leg and terminating at mid castorena. The patient states that this got acutely worse over the past 2 days and now is unbearable. She states that this started around January with worsening of right sided back and upper leg pain through her groin and into mid quad. It is worse with standing for prolonged period of times, this was exacerbated by work- where she stands and lifts objects. She has been off work since April. Patient had MRI done in February 2022 which was interpreted as asymmetric disc bulge L3-L4 with foramen narrows and contacts L3 nerve root, L5-S1 with recess narrowing at the bulge contacting S1 nerve root with left foraminal stenosis and contact of lt nerve. She has followed up with [facility] (DR. Piña) and has received injections for this- last seen in 06/03/22 and had block performed as well as some discussion of possible radio-frequency ablation in future. Patient has been on her couch over the past week secondary to pain. The pain worsens when she stands or flexes forward. She has not noted any weakness in her leg but notes sensation change at the L2-L3 distribution. She was trialed with gabapentin in the past and stopped this secondary to finding no benefit. She was previously doing PT at home as well as chiropractor visits, however she has not been able to get manipulated on her most recent visits secondary to pain. Currently she was on Medrol 4mg, Ultram, Tylenol, Diclofenac, cyclobenzaprine, and Cymbalta. In the EMD the patient received- Toradol, Solumederol 60mg IV, Lidocaine patch, Morphine, Tylneol, and valium PO. CT of her lumbar was performed. She remains with significant spasm and back pain with movement, her position of comfort is slightly elevated lying on her left side with pillow between her legs. Patient will be admitted for pain control and repeat of her MRI which is currently pending. Will consult pain management and pending MRI results possibly Ortho-Spine. COVID on admission is: NEGATIVE Allergies Allergy/AdvReac Type Severity Reaction Status Date / Time No Known Allergies Allergy Unknown Verified 06/04/22 11:10 Home Medications Medication Instructions Recorded Confirmed Type cholecalciferol (vitamin D3) See Rx Instructions PO .COMPLEX 05/10/19 06/14/22 History [Vitamin D3] pantoprazole 40 mg tablet,delayed 40 mg PO DAILY #90 tabs 09/04/20 06/14/22 Rx release duloxetine 30 mg capsule,delayed 30 mg PO .COMPLEX 02/27/22 06/14/22 History release duloxetine 60 mg capsule,delayed 60 mg PO .COMPLEX 02/27/22 06/14/22 History release diclofenac sodium 75 mg 75 mg PO BID PRN pain #60 tabs 06/04/22 06/14/22 Rx tablet,delayed release methylprednisolone 4 mg tablets in See Rx Instructions .Route 06/04/22 06/14/22 Rx a dose pack (Medrol (Mateusz)) .COMPLEX #21 ea cyclobenzaprine 5 mg tablet 5 mg PO TID PRN muscle spasm #30 06/09/22 06/14/22 Rx tabs tramadol 50 mg tablet 50 mg PO Q8H PRN pain #20 tabs 06/12/22 06/14/22 Rx Past Med/Surg History Medical History (Updated 06/14/22 @ 13:28 by ALEKSEY Mayers) Cervical stenosis of spinal canal History of parotitis Lumbar spondylosis Migraine without aura Osteoarthritis Recurrent cold sores Rheumatic fever Sjogrens syndrome Surgical History History of hernia repair History of hysterectomy still w/ ovary History of kidney surgery L ureter transplant Status post cervical spinal fusion (01/20/18) Family History Mother Hypertension Breast cancer Diabetes Father No known health problems Denies family history of Ovarian cancer Prostate cancer Myocardial infarction Colorectal cancer Social History Smoking Status: Current every day smoker packs per day: 0.5; Second Hand Exposure: Yes; Hx Alcohol Use: No Hx Substance Use: No Preferred Language: Greenlandic Communication Ability: Effective Visual Impairment: No Limitations Hearing Ability: Normal Electrical Line Splicer Required: No marital status: Current Living Situation: Spouse current occupational status: employed Feels Safe at Home: Yes caffeine: Yes Dental Care, Regularly: Yes Physical Activity Frequency: Daily Seatbelt Use: always Review of Systems Review of Systems: REVIEW OF SYSTEMS: Constitutional: No fever, sweats or chills Eyes: No diplopia, no worsening or blurred vision ENT: normal hearing, no trouble swallowing Respiratory: No cough, sputum, dyspnea at rest or on exertion Cardiovascular: No chest pain, tightness or palpitations Abdomen: No pain, nausea, vomiting, diarrhea or constipation Musculoskeletal: (+) right lower back joint pain with radiation to leg calf pain, swelling Neurologic: No weakness, numbness/tingling, or balance problems Psychiatric: No anxiety or depression Skin: No rash or itch Physical Exam Physical Exam: PHYSICAL EXAM: General: awake, alert, no apparent distress Head: Normocephalic, atraumatic ENT: PERRL, EOMI, no pharyngeal exudate, mucous membranes moist Neuro: AAO x 3, speech clear and appropriate, strength intact bilaterally 5/5, decreased sensation to right lower leg mid castorena to just above the ankle, and decrease sensation to right quad, plantar and dorsiflexion of foot is normal and strength and muscle tone are preserved Chest: equal rise and fall of the chest, no accessory muscle use, no heaves or thrills, Clear to auscultation, on room air, Cardiac: Regular rate and rhythm, telemetry reviewed, skin warm dry, cap refill <3 seconds, peripheral pulses +2 no JVD, Grade I systolic murmur, , no edema GI: NABS x 4 quadrants, soft, nontender to palpation, no rebound, guarding or tenderness : Spontaneously voiding, no pain, no CVA tenderness, Extremities: Normal inspection, no peripheral edema or erythema, calfs nontender to palpation Psych: Normal mood and affect Skin: no rash or erythema Results & Data Results & Data ([facility]) Vital Signs (Past 12 Hours) Vital Signs Temp Pulse Pulse Resp BP BP Pulse Ox 06/14/22 10:11 99 06/14/22 10:11 102 H 18 156/91 H 98 06/14/22 08:24 36.6 C 97 H 18 136/77 98 O2 Del Method 06/14/22 10:11 Room Air 06/14/22 10:11 Room Air 06/14/22 08:24 Room Air Laboratory Results Abnormal lab results 06/14/22 06/14/22 Range/Units 11:35 11:35 RDW Std Deviation 47.0 H (36.4-46.3) fL MPV 9.1 L (9.4-12.3) fL Neut # (Auto) 8.42 H (1.4-6.5) K/uL Immature Gran # (Auto) 0.05 H (0.00-0.02) K/uL BUN/Creatinine Ratio 27.9 H (10-20) Glucose 103 H (70-99(Fasting)) mg/dl Diagnostic Findings Lumbar Spine CT 06/14/22 08:41 CT lumbar spine wo con CLINICAL HISTORY: R sided paraspinal pain, numbness anterior leg TECHNIQUE: Multidetector row helical CT of the lumbar spine was performed without administration of intravenous contrast. Coronal and sagittal reformatio ns were obtained. Automated dose lowering techniques and/or adjustment according to patient size were utilized for this exam. CT DOSE: 668.32 mGy.cm Comparison: None available at the time of this dictation. FINDINGS: For counting purposes, the last complete intervertebral disc space is considered L5-S1. No acute fractures are identified. Degenerative changes are noted in the visualized spine. Vertebral body alignment is within normal limits. Surrounding soft tissues are unremarkable. IMPRESSION: No evidence of acute bony injury. If there is concern for disc disease, MRI can be performed. ACT 112: Negative or not required by law. Electronically signed by: Heraclio Powell M.D. 06/14/2022 10:05 AM Medications Administered Miscellaneous (Remove Lidoderm Patch) 1 each N/A DAILY@2100 MAXWELL Stop: 07/14/22 20:59 Last Admin: 06/14/22 11:33 Dose: 1 each Documented By: PARK Discontinued Medications Acetaminophen (Acetaminophen 500 Mg Tab) 1,000 mg PO NOW STA Stop: 06/14/22 08:42 Last Admin: 06/14/22 09:12 Dose: 1,000 mg Documented By: BAUTISTA Diazepam (Diazepam 5 Mg/Ml Inj 10ml Vial) 2 mg IV NOW STA Stop: 06/14/22 11:18 Last Admin: 06/14/22 11:29 Dose: Not Given Documented By: PARK Diazepam (Diazepam 2 Mg Tablet) 2 mg PO NOW ONE Stop: 06/14/22 11:28 Last Admin: 06/14/22 11:33 Dose: 2 mg Documented By: PARK Ketorolac Tromethamine (Ketorolac Tromethamine 15 Mg/Ml Vial) 10 mg IV ONE STA Stop: 06/14/22 08:42 Last Admin: 06/14/22 09:11 Dose: 10 mg Documented By: BAUTISTA Lidocaine (Lidocaine 5% 1 Patch) 1 patch TD NOW STA Stop: 06/14/22 08:42 Last Admin: 06/14/22 09:10 Dose: 1 patch Documented By: BAUTISTA Methylprednisolone (Methylprednisolone 125 Mg/2 Ml Vial) 60 mg IV NOW STA Stop: 06/14/22 08:42 Last Admin: 06/14/22 09:10 Dose: 60 mg Documented By: BAUTISTA Morphine Sulfate (Morphine Sulfate 4 Mg/Ml 1 Ml Carp\Vial) 4 mg IV NOW STA Stop: 06/14/22 08:42 Last Admin: 06/14/22 09:11 Dose: 4 mg Documented By: BAUTISTA Ondansetron HCl (Ondansetron Inj 2 Mg/Ml 2 Ml Vial) 4 mg IV NOW STA Stop: 06/14/22 08:42 Last Admin: 06/14/22 09:11 Dose: 4 mg Documented By: BAUTISTA Oxycodone HCl (Oxycodone Hcl Ir 5 Mg Tab (Immediate Release)) 5 mg PO NOW STA Stop: 06/14/22 10:32 Last Admin: 06/14/22 10:44 Dose: 5 mg Documented By: BAUTISTA Home Medications cholecalciferol (vitamin D3) [Vitamin D3] See Rx Instructions PO .COMPLEX 05/10/19 [History Confirmed 06/14/22] pantoprazole 40 mg tablet,delayed release 40 mg PO DAILY #90 tabs 09/04/20 [Rx Confirmed 06/14/22] duloxetine 30 mg capsule,delayed release 30 mg PO .COMPLEX 02/27/22 [History Confirmed 06/14/22] duloxetine 60 mg capsule,delayed release 60 mg PO .COMPLEX 02/27/22 [History Confirmed 06/14/22] diclofenac sodium 75 mg tablet,delayed release 75 mg PO BID PRN pain #60 tabs 06/04/22 [Rx Confirmed 06/14/22] methylprednisolone 4 mg tablets in a dose pack (Medrol (Mateusz)) See Rx Instructions .Route .COMPLEX #21 ea 06/04/22 [Rx Confirmed 06/14/22] cyclobenzaprine 5 mg tablet 5 mg PO TID PRN muscle spasm #30 tabs 06/09/22 [Rx Confirmed 06/14/22] tramadol 50 mg tablet 50 mg PO Q8H PRN pain #20 tabs 06/12/22 [Rx Confirmed 06/14/22] Active Medications Miscellaneous (Remove Lidoderm Patch) 1 each N/A DAILY@2100 MAXWELL Stop: 07/14/22 20:59 Last Admin: 06/14/22 11:33 Dose: 1 each ECG Additional Comments: pending on admission Code Status & VTE Plan Code Status CODE: FULL VTE: SCDS, hold on chemoprophylaxis pending evaluations VTE Prophylaxis Plan VTE Prophylaxis will be ordered: Yes Supervising Physician Co-Signing Physician Notes Patient seen and examined, chart reviewed, case discussed with ALEKSEY Cornejo of and I agree with the assessment and plan as above except as otherwise noted Labs and images reviewed 57-year-old female who presents with right lower steroid back pain with right lower extremity numbness which travels down her leg. Achy and sharp pain. Has not improved with Tylenol, diazepam, Toradol, lidocaine, steroids, oxycodone, morphine, Zofran. Lumbar spine CT with no evidence of acute bony injury. MRI 02/2022 with asymmetric disc bulge L3-L4 and narrowing of the right neural foramen, broad-based disc bulge at L5-S1 and bilateral recess narrowing with descending right S1 nerve contact, multilevel degenerative changes. Past medical history GERD, depression. On Protonix 40 mg daily, duloxetine, and has been on tramadol/Methylpred/diclofenac/cyclobenzaprine for back painno history of bowel/bladder incontinence. On exam patient with right leg straight raise inducing pain and spasm radiating into the back. No saddle anesthesia. Qualitative decrased sensation in anterior distal thigh and anterior proximal lower leg although not absent has a 'numb/tingling quality'. Ankle dorsiflexion/plantarflexion 5/5 bilaterally. Cap refill brisk in foot bilaterally. Agree with management above PG Care Time/CCT Total # of Minutes Spent Total Time Spent with Patient: Total time spent is greater than 50% in coordination of care (as documented) at patient's floor/unit and/or counseling patient: Coding Level of Care Code 83837 Initial Inpt Care Lvl 3 Diagnoses Acute radicular low back pain M54.16 Gastroesophageal reflux K21.9 HTN, goal below 140/90 I10 Vitamin D deficiency E55.9 Anxiety and depression F41.9; F32.9 Osteoarthritis M19.90 Sjogrens syndrome M35.00
--- NOTE | 2022-06-14 14:25 | Magnetic Resonance Report ---
MR lumbar spine wo con CLINICAL HISTORY: L LBP, leg numbness, intractable pain TECHNIQUE: Multiplanar sequences through the lumbar spine were obtained, without intravenous contrast . Comparison: None available at the time of this dictation. FINDINGS: The alignment is anatomical. L1-L2: Minimal disc bulge is noted. L2-L3: Mild posterior disc bulge is seen without significant canal or neuroforaminal stenosis. L3-L4: There is a broad-based posterior disc bulge with resulting mild canal stenosis and bilateral n eural foraminal stenosis. L4-L5: Broad-based posterior disc bulge without significant canal stenosis but with mild bilateral ne uroforaminal stenosis. L5-S1: Broad-based posterior disc bulge, left greater than right with moderate left and mild right ne ural foraminal stenosis and no significant canal stenosis. The spinal ligaments are intact, without evidence of disruption or abnormal signal intensity. The spi nal cord is normal in signal intensity and there is no evidence of cord contusion. There is no eviden ce of an extradural, intradural, extramedullary or intramedullary lesion. Visualized soft tissues are normal. IMPRESSION: Multilevel degenerative changes as above. At L5-S1, there is moderate left and mild right neural fora sony stenosis. ACT 112: Negative or not required by law. Electronically signed by: Heraclio Powell M.D. 06/14/2022 2:24 PM
[2022-06-14] MEDS ORDERED: POLYETHYLENE (MIRALAX) 17 GM PACK PO PRN (15:56)
[2022-06-14] MEDS ORDERED: ONDANSETRON INJ 2 MG/ML 2 ML VIAL IV PRN (15:56)
[2022-06-14] MEDS ORDERED: traMADol HCL 50 MG TABLET PO PRN (15:56)
[2022-06-14] MEDS ORDERED: NALOXONE HCL 0.4 MG/1 ML VIAL/CARP IV PRN (15:56)
[2022-06-14] MEDS: oxyCODONE HCL IR 5 MG TAB (IMMEDIATE RELEASE) PO PRN (16:35)
[2022-06-14] MEDS: methylPREDNISolone 40 MG in SYRINGE 0 ML IV SCH ×2 (18:23→21:27)
[2022-06-14] MEDS: KETOROLAC TROMETHAMINE 15 MG/ML VIAL IV SCH ×2 (18:23→21:27)
[2022-06-14] MEDS: ACETAMINOPHEN 325 MG TAB PO SCH ×2 (18:23→21:27)
[2022-06-14] MEDS: diazePAM 5 MG TABLET PO PRN (20:26)
[2022-06-14] MEDS ORDERED: GABAPENTIN 300 MG CAP PO SCH (21:00)
[2022-06-15] MEDS: oxyCODONE HCL IR 5 MG TAB (IMMEDIATE RELEASE) PO PRN ×2 (01:08→08:36)
[2022-06-15] MEDS: MoRPHine SULFATE 4 MG/ML 1 ML CARP\\VIAL IV PRN ×3 (03:27→23:11)
[2022-06-15] MEDS: KETOROLAC TROMETHAMINE 15 MG/ML VIAL IV SCH ×2 (03:27→11:29)
[2022-06-15] MEDS: methylPREDNISolone 40 MG in SYRINGE 0 ML IV SCH (06:09)
[2022-06-15] MEDS: ACETAMINOPHEN 325 MG TAB PO SCH ×2 (06:09→14:05)
[2022-06-15] MEDS: diazePAM 5 MG TABLET PO PRN (06:42)
--- NOTE | 2022-06-15 07:23 | Hospitalist Progress Note ---
Date of Service June 15, 2022 Assessment & Plan (1) Neural foraminal stenosis of lumbar spine: Plan: 57 year old with past medical history of Sjogren's syndrome, HTN, Anxiety depression, GERD, HTN, Mitral regurg, Rheumatic Fever, Cervical stenosis with surgery, OA + Rheumatoid factor and tobacco use disorder who presents with worsening right radicular sciatica type pain since January 2022. Right lumbar radiculopathy secondary to L3 nerve root compression - Lumbar spine MRI this admission compared with that of 02/25/22. - "There is a focal right greater than left disc bulge at L3-L4 resulting in moderate right and mild left neuroforaminal stenosis." 02/25/22 MRI mentioned the disc bulge on right L3-L4 contacting exiting right L3 nerve, but did not comment on the severity. - "Multilevel degenerative changes. At L5-S1, there is moderate left and mild right neural foraminal stenosis." 02/25/22 MRI L5-S1 was patent on right. - pain management consulted: recs for discharge home: PO Medrol. Increasing gabapentin to 300mg TID. Using oxycodone IR instead of tramadol. Using BID Baclofen as needed to allow less reliance on Valium (provided while inpatient). - current inpatient regimen: scheduled Baclofen 10mg BID, scheduled Tylenol 1000mg IV q8h, prn IV morphine 3mg q6h for 6-10 pain after failing Tylenol, gabapentin 300mg PO TID, Cymbalta 90mg daily, and Lidocaine patch qAM. Valium has been discontinued. - ortho spine consulted: considering surgical intervention; posterior lumbar decompression and instrumented fusion at L3-L4. Deferring home PT at this time. Inpatient PT evaluated. Anxiety and depression: - stable. continue Cymbalta as well for pain adjunct Leukocytosis - secondary to steroid use, neutrophil demargination. no clinical signs of infection Constipation - scheduled Miralax BID. Colace. HTN, goal below 140/90: - Not on current therapy Gastroesophageal reflux: - continue home PPI Vitamin D deficiency: - continue supplementation Osteoarthritis: - follows rheumatology as outpatient Sjogrens syndrome: - as above FEN/GI: DM2 diet ordered. Not diabetic, but has impaired fasting glucose and is on steroids. No IV fluids. ppx: sq Lovenox dispo: PCU downgrade to med surg. Per telemetry, has been NSR 70s-90s, currently sinus tach 108. code: full Admission and Anticipated Discharge Date Admission Date: June 14, 2022 Supervising Physician Co-Signing Physician Notes Resident Physician Supervision Note: I independently interviewed and examined the patient and verified the grigsby history and physical, reviewed labs and image studies and agree with resident findings and care plan. Subjective Patient was seen at bedside. She was given 4 mg of IV morphine and her current pain level is 4 out of 10. Prior to the morphine and when on exertion, her pain was 10 out of 10. Her symptoms are right sciatica type pain that starts at her right SI region goes down the right lateral thigh past the knee and down to the right mid calf area. The pain and numbness does go to the right inguinal area. She has associated numbness of the regions described. She denies saddle anesthesia or bowel/urinary incontinence. She denies other symptoms such as fever chills chest pain shortness of breath. 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 She had MRI of her back in February 2022 through [facility]. Review of Systems Review of Systems: All systems reviewed & are unremarkable except as noted in HPI & below Physical Exam Physical Exam: General: Grossly A&O. NAD. Cooperative. HEENT: Atraumatic, normocephalic. EOMI Pulm: CTAB. -wheezes, -rales, -rhonchi. No respiratory distress. Cardiac: RRR, -mrg. Abdominal: Nontender, nondistended, soft. Msk: decreased sensation of right lateral thigh and medial calf. Pos right SLR. Results & Data Results & Data ([facility]) Vital Signs (Past 12 Hours) Vital Signs Temp Pulse Pulse Resp BP Pulse Ox O2 Del Method 06/15/22 03:08 36.6 C 82 18 116/75 92 Room Air 06/14/22 23:00 94 H 06/14/22 20:00 Room Air 06/14/22 22:44 36.7 C 94 H 16 131/76 95 Room Air 06/14/22 20:21 37.4 C 81 18 130/79 95 Room Air Resident Activity Tracking Resident Involvement: Resident Care Provided Care Provided: [facility] Medicine
[2022-06-15 08:15] LABS: BUN Creatinine Ratio 26.8 (10-20); Calcium 9.7 mg/dl (8.5-10.1); Creatinine Clr Calc Pharmacy 75.2 ml/min; Est GFR (African American) 92.1 ml/min; Est GFR (Non-African American) 79.4 ml/min; Magnesium 1.8 mg/dl (1.7-2.4); Potassium 3.9 mmol/L (3.5-5.1)
[2022-06-15] MEDS: DOCUSATE SODIUM 100 MG CAP PO SCH (08:34)
[2022-06-15] MEDS: DULoxetine HCL 30 MG CAP PO SCH (08:36)
[2022-06-15] MEDS: LIDOCAINE 5% 1 PATCH TD SCH (08:37)
[2022-06-15] MEDS: PANTOprazole 40 MG TAB PO SCH (08:38)
[2022-06-15] MEDS ORDERED: methylPREDNISolone 4 MG TAB, 6 DAY TAPER PO SCH (08:45)
[2022-06-15] MEDS ORDERED: MoRPHine SULFATE 4 MG/ML 1 ML CARP\\VIAL IV STA (09:01)
--- NOTE | 2022-06-15 09:15 | Pain Management Consultation ---
Date of Consultation June 15, 2022 Assessment & Plan (1) Neural foraminal stenosis of lumbar spine: (2) Right lumbar radiculopathy: (3) Anxiety and depression: Plan 1. Recommend conversion from IV to oral steroids. 2. Recommend increasing gabapentin to 300 mg p.o. 3 times daily. 3. Recommend utilization of Oxy IR rather than tramadol. Tramadol discontinued 4. Recommend utilization of baclofen 10 mg p.o. twice daily as needed to allow less reliance on Valium. 5. Recommend she follow-up as an outpatient with Dr. Piña for possible repeat right L4-5 transforaminal epidural steroid injection. 6. Recommend outpatient physical therapy to develop a home exercise regimen to minimize pain and discomfort. Orders were placed for inpatient PT consult while here at [facility]. 7. Thank you very much for this consultation please call with any questions. History of Present Illness Attending Physician: Katelynn Huber MD History of Present Illness 57-year-old female with history of 50% right lumbosacral junction to 50% right L4 radicular symptoms since January. 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 She states she received a right L4 transforaminal epidural steroid injection with near resolution of her radicular symptoms in April 2022. However, she states that when she went back to work late April to 2021 she started having recurrence of her radicular symptoms. She denies true inciting injury however states that when she works on the lamination portion of the factory she experiences more pain than in other sections of the factory. She presented to the [facility] emergency room with worsening symptoms. She states her pain ranges between 5-8 out of 10 sharp shooting stabbing. She denies any bowel or bladder incontinence, motor weakness, foot drop, fever, chills, night sweats. She states that her pain is worse worse with lifting items bending and twisting and improved with sitting laying down. Previous interventions include Toradol, IV and oral steroids, Lidoderm patch, morphine IV, Tylenol, diclofenac, Flexeril, Cymbalta, interventional pain management with Dr. Piña. Pain Assessment Full Body Front + Back: 1. 2. [facility] Combined Pain Scale: 7-Severe - Pain prevents productive a ctivity. Impossible to tolerate. Pain scale - at its best (0-10): 5 Pain scale - at its worst (0-10): 8 Allergies Allergy/AdvReac Type Severity Reaction Status Date / Time No Known Allergies Allergy Unknown Verified 06/04/22 11:10 Home Medications Medication Instructions Recorded Confirmed Type cholecalciferol (vitamin D3) See Rx Instructions PO .COMPLEX 05/10/19 06/14/22 History [Vitamin D3] pantoprazole 40 mg tablet,delayed 40 mg PO DAILY #90 tabs 09/04/20 06/14/22 Rx release duloxetine 30 mg capsule,delayed 30 mg PO .COMPLEX 02/27/22 06/14/22 History release duloxetine 60 mg capsule,delayed 60 mg PO .COMPLEX 02/27/22 06/14/22 History release diclofenac sodium 75 mg 75 mg PO BID PRN pain #60 tabs 06/04/22 06/14/22 Rx tablet,delayed release methylprednisolone 4 mg tablets in See Rx Instructions .Route 06/04/22 06/14/22 Rx a dose pack (Medrol (Mateusz)) .COMPLEX #21 ea cyclobenzaprine 5 mg tablet 5 mg PO TID PRN muscle spasm #30 06/09/22 06/14/22 Rx tabs tramadol 50 mg tablet 50 mg PO Q8H PRN pain #20 tabs 06/12/22 06/14/22 Rx Pain History Pain Intensity Pain scale - at its best (0-10): 5 Pain scale - at its worst (0-10): 8 Patient History Medical History Cervical stenosis of spinal canal History of parotitis Lumbar spondylosis Migraine without aura Osteoarthritis Recurrent cold sores Rheumatic fever Sjogrens syndrome Surgical History History of hernia repair History of hysterectomy still w/ ovary History of kidney surgery L ureter transplant Status post cervical spinal fusion (01/20/18) Family History Mother Hypertension Breast cancer Diabetes Father No known health problems Denies family history of Ovarian cancer Prostate cancer Myocardial infarction Colorectal cancer Social History Smoking Status: Current every day smoker packs per day: 0.5; Second Hand Exposure: Yes; Hx Alcohol Use: No Hx Substance Use: No Preferred Language: Macedonian Communication Ability: Effective Visual Impairment: No Limitations Hearing Ability: Normal 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 Recent memory appears grossly intact Eyes: Pupils are equally round and reactive to light with normal size pupils, eyelids appear normal Ear, nose, mouth, and throat: Moist nasal and oral membranes, lips and tongues appear normal, no external ear abnormalities are noted Neck: The trachea is midline without deviation and no thyromegaly is noted Respiratory: Normal respiratory effort without distress, no audible wheezes or rhonchi CV: Normal S1 and S2, warm distal extremities Chest: Deferred Musculoskeletal: Head is normocephalic and atraumatic, gait is slightly unsteady Cervical: Lordotic curve: Normal Range of motion is normal with extension, flexion, side-bending, rotation Strength: Strength is grossly equal bilaterally with 5 out of 5 strength in all planes Lumbar: Lordotic curve: Normal Range of motion is normal with extension, flexion, side-bending, rotation Tenderness: Moderately tender over the axial midline right lumbosacral junction Facet provocation: Negative bilaterally Straight leg raise: Negative bilaterally, not worse with Achilles stretch Step-off injuries: None Strength: Strength is equal bilaterally with 5 out of 5 strength in all planes Sensation of lower extremities: Intact bilaterally Deep tendon reflexes: Rated at 2+ in bilateral L4 and S1 Myofascial spasm: Mild lumbar paravertebral spinous musculature spasm. No discrete trigger points noted Greater trochanters: Nontender bilaterally Sacroiliac joints: Nontender bilaterally Pathologic reflexes noted: None Skin: No rashes, lesions, ulcers, or induration noted Neuro: No nystagmus noted, the tongue is midline, the patient is able to rotate their head bilaterally : Deferred Results (Pain Clinic) Diagnostic Review MRI: non enhanced, reports reviewed, images reviewed and findings discussed with patient MRI Findings: 06/14/22 MR lumbar spine wo con CLINICAL HISTORY: L LBP, leg numbness, intractable pain TECHNIQUE: Multiplanar sequences through the lumbar spine were obtained, without intravenous contrast. Comparison: None available at the time of this dictation. FINDINGS: The alignment is anatomical. L1-L2: Minimal disc bulge is noted. L2-L3: Mild posterior disc bulge is seen without significant canal or neuroforaminal stenosis. L3-L4: There is a broad-based posterior disc bulge with resulting mild canal stenosis and bilateral neural foraminal stenosis. L4-L5: Broad-based posterior disc bulge without significant canal stenosis but with mild bilateral neuroforaminal stenosis. L5-S1: Broad-based posterior disc bulge, left greater than right with moderate left and mild right neural foraminal stenosis and no significant canal stenosis. The spinal ligaments are intact, without evidence of disruption or abnormal signal intensity. The spinal cord is normal in signal intensity and there is no evidence of cord contusion. There is no evidence of an extradural, intradural, extramedullary or intramedullary lesion. Visualized soft tissues are normal. IMPRESSION: Multilevel degenerative changes as above. At L5-S1, there is moderate left and mild right neural foraminal stenosis.
[2022-06-15 09:18] LABS: Basophils # (auto) 0.01 K/uL (0-0.2); Basophils % (auto) 0.1 %; Hematocrit (blood only) 41.5 % (34.1-44.9); Hemoglobin 14.1 g/dl (12.0-16.0); Immature Granulocytes # (auto) 0.15 K/uL (0.00-0.02); Lymphocytes # (auto) 1.44 K/uL (1.2-3.4); Mean Corpuscular Hemoglobin 32.4 pg (25.0-34.0); Mean Corpuscular Volume 95.4 fL (80.0-100.0); Mean Platelet Volume 9.3 fL (9.4-12.3); Monocytes # (auto) 0.45 K/uL (0.24-0.82); Monocytes % (auto) 3.1 %; Neutrophils # (auto) 12.37 K/uL (1.4-6.5); Neutrophils % (auto) 85.8 %; Platelet Count 263 K/uL (130-400); RDW Coefficient of Variation 12.8 % (11.5-14.5); RDW Standard Deviation 44.9 fL (36.4-46.3); Red Blood Count 4.35 M/uL (3.93-5.22); White Blood Count 14.42 K/ul (4.8-10.8)
[2022-06-15] MEDS: GABAPENTIN 300 MG CAP PO SCH ×3 (09:26→21:07)
--- NOTE | 2022-06-15 09:58 | Consultation ---
Date of Consultation June 15, 2022 Assessment & Plan (1) Neural foraminal stenosis of lumbar spine: I have reviewed MRI and clinical findings with the patient. Dr. Mays has reviewed this as well. I believe she has a far lateral disc herniation at L3-4 on the right. This is consistent on her MRI as well as with her pain pattern. She has failed oral steroids as well as an injection with Dr. Piña. I will order physical therapy. Ultimately this may require surgical intervention in the form of a posterior lumbar decompression and instrumented fusion at L3-4. This has been discussed with the patient. She is interested in pursuing this at the nearest opportune time. History of Present Illness Reason for Consultation: Back and right lower extremity pain Attending Physician: Katelynn Huber MD History of Present Illness Is a very pleasant 57-year-old female well-known to us. She has undergone prior ACDF by Dr. Mays about 3 years ago. Current issue started in January without precipitating accident, trauma, fall. It affects her right lower extremity. She denies left lower extremity symptoms. Symptoms involve right buttock, right groin, anterior thigh, knee and castorena. She has numbness in this similar area. Any type of weightbearing, standing or walking exacerbate her symptoms. She is constantly changing positions to try and obtain relief. She denies bowel bladder changes. Denies perineum numbness. She is ambling independently. She saw Dr. Piña and received an injection in the lumbar spine in March which did provide significant improvement of her back, leg pain and leg numbness. Unfortunately her symptoms returned about a month later. She has been off work since May 13 due to above-mentioned complaints. Pain has been increasingly worsening over the past week which resulted in her coming to the emergency room yesterday. Her family physician had placed her on oral steroids as well as tramadol prior to this admission. Allergies Allergy/AdvReac Type Severity Reaction Status Date / Time No Known Allergies Allergy Unknown Verified 06/04/22 11:10 Home Medications Medication Instructions Recorded Confirmed Type cholecalciferol (vitamin D3) See Rx Instructions PO .COMPLEX 05/10/19 06/14/22 History [Vitamin D3] pantoprazole 40 mg tablet,delayed 40 mg PO DAILY #90 tabs 09/04/20 06/14/22 Rx release duloxetine 30 mg capsule,delayed 30 mg PO .COMPLEX 02/27/22 06/14/22 History release duloxetine 60 mg capsule,delayed 60 mg PO .COMPLEX 02/27/22 06/14/22 History release diclofenac sodium 75 mg 75 mg PO BID PRN pain #60 tabs 06/04/22 06/14/22 Rx tablet,delayed release methylprednisolone 4 mg tablets in See Rx Instructions .Route 06/04/22 06/14/22 Rx a dose pack (Medrol (Mateusz)) .COMPLEX #21 ea cyclobenzaprine 5 mg tablet 5 mg PO TID PRN muscle spasm #30 06/09/22 06/14/22 Rx tabs tramadol 50 mg tablet 50 mg PO Q8H PRN pain #20 tabs 06/12/22 06/14/22 Rx Patient History Medical History Cervical stenosis of spinal canal History of parotitis Lumbar spondylosis Migraine without aura Osteoarthritis Recurrent cold sores Rheumatic fever Sjogrens syndrome Surgical History History of hernia repair History of hysterectomy still w/ ovary History of kidney surgery L ureter transplant Status post cervical spinal fusion (01/20/18) Family History Mother Hypertension Breast cancer Diabetes Father No known health problems Denies family history of Ovarian cancer Prostate cancer Myocardial infarction Colorectal cancer Social History Smoking Status: Current every day smoker packs per day: 0.5; Second Hand Exposure: Yes; Hx Alcohol Use: No Hx Substance Use: No Preferred Language: Urdu Communication Ability: Effective Visual Impairment: No Limitations Hearing Ability: Normal 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 Beliefs That Will Affect Care: None marital status: Current Living Situation: Spouse and Family current occupational status: employed Feels Safe at Home: Yes caffeine: Yes Dental Care, Regularly: Yes Physical Activity Frequency: Daily Seatbelt Use: always Review of Systems Review of Systems: All systems reviewed & are unremarkable except as noted in HPI & below Physical Exam Physical Exam: Alert and oriented x3 Cooperative with exam Moderately uncomfortable Moves in bed with ease She has 5/5 EHL, dorsiflexion, plantarflexion, quadriceps, hamstrings, hip flexors, hip abductor's and hip adductor's Positive straight leg raise on the right negative on the left Negative logrolling bilaterally Constitutional: healthy appearing, cooperative and + in distress Eyes: normal visual cat by confrontation ENMT: external ear and nose normal, oropharynx normal Neck: normal visual inspection Respiratory: normal respiratory effort Cardiovascular: Extremities: normal capillary refill Gastrointestinal (Abdomen): Inspection/Auscultation: abdomen normal to inspection Musculoskeletal: Spine: + straight leg raise positive Extremities: extremi ties normal to inspection Skin: no rashes, warm and dry normal turgor Neurologic: normal touch/pain/proprioception and moves all extremities Psychiatric: A+Ox3, euthymic affect Eye Contact: good eye contact Speech: normal rate/rhythm/volume of speech Results & Data ([facility]) Vital Signs (Past 12 Hours) Vital Signs Temp Pulse Pulse Resp BP Pulse Ox O2 Del Method 06/15/22 07:54 36.7 C 91 H 18 119/73 95 Room Air 06/15/22 03:08 36.6 C 82 18 116/75 92 Room Air 06/14/22 23:00 94 H 06/14/22 22:44 36.7 C 94 H 16 131/76 95 Room Air Diagnostic Findings [place], [place] [phone] Magnetic Resonance Report Patient:JULIO C MUHAMMAD Admit Date:06/14/22 MR#:[id number] Address1:[address] [place] [address] Acct ID:[id number] Address2: Date:1965 [facility] Zip:[place] [address] Age:57 Location:ED Sex:F Room/Bed: Att Phy: Diagnosis:BACK PAIN Harini Phy:Aurora Lockwood DO Service Date:06/14/22 Fam Phy: Interpreting Phy:Heraclio Powell MDAit Phy: Ordering Phy:Tato Solis MD cc: ~ MR lumbar spine wo con CLINICAL HISTORY: L LBP, leg numbness, intractable pain TECHNIQUE: Multiplanar sequences through the lumbar spine were obtained, without intravenous contrast. Comparison: None available at the time of this dictation. FINDINGS: The alignment is anatomical. L1-L2: Minimal disc bulge is noted. L2-L3: Mild posterior disc bulge is seen without significant canal or neuroforaminal stenosis. L3-L4: There is a broad-based posterior disc bulge with resulting mild canal stenosis and bilateral neural foraminal stenosis. L4-L5: Broad-based posterior disc bulge without significant canal stenosis but with mild bilateral neuroforaminal stenosis. L5-S1: Broad-based posterior disc bulge, left greater than right with moderate left and mild right neural foraminal stenosis and no significant canal stenosis. The spinal ligaments are intact, without evidence of disruption or abnormal signal intensity. The spinal cord is normal in signal intensity and there is no evidence of cord contusion. There is no evidence of an extradural, intradural, extramedullary or intramedullary lesion. Visualized soft tissues are normal. IMPRESSION: Multilevel degenerative changes as above. At L5-S1, there is moderate left and mild right neural foraminal stenosis. ACT 112: Negative or not required by law. Electronically signed by: Heraclio Powell M.D. 06/14/2022 2:24 PM Dictated:06/14/22 1421 Transcribed: 06/14/22 1421
[2022-06-15] MEDS: BACLOFEN 10 MG TAB PO SCH ×2 (10:47→21:07)
[2022-06-15] MEDS: methylPREDNISolone 4 MG TAB PO SCH ×4 (11:26→21:09)
--- NOTE | 2022-06-15 12:13 | Discharge Summary ---
Date of Service June 15, 2022 Admission HPI Per Admitting Provider 57 YOF with medical history of: Sjogren's syndrome, HTN, Anxiety depression, GERD, HTN, Mitral regurge, Rheumatic Fever, Cervical stenosis with surgery, OA + Rhematoid factor, smoker. Patient comes to the EMD today for increase in lower right sided back pain, with pain radiating down her right leg and terminating at mid castorena. The patient states that this got acutely worse over the past 2 days and now is unbearable. She states that this started around January with worsening of right sided back and upper leg pain through her groin and into mid quad. It is worse with standing for prolonged period of times, this was exacerbated by work- where she stands and lifts objects. She has been off work since April. Patient had MRI done in February 2022 which was interpreted as asymmetric disc bulge L3-L4 with foramen narrows and contacts L3 nerve root, L5-S1 with recess narrowing at the bulge contacting S1 nerve root with left foraminal stenosis and contact of lt nerve. She has followed up with [facility] (DR. Piña) and has received injections for this- last seen in 06/03/22 and had block performed as well as some discussion of possible radio-frequency ablation in future. Patient has been on her couch over the past week secondary to pain. The pain worsens when she stands or flexes forward. She has not noted any weakness in her leg but notes sensation change at the L2-L3 distribution. She was trialed with gabapentin in the past and stopped this secondary to finding no benefit. She was previously doing PT at home as well as chiropractor visits, however she has not been able to get manipulated on her most recent visits secondary to pain. Currently she was on Medrol 4mg, Ultram, Tylenol, Diclofenac, cyclobenzaprine, and Cymbalta. In the EMD the patient received- Toradol, Solumederol 60mg IV, Lidocaine patch, Morphine, Tylneol, and valium PO. CT of her lumbar was performed. She remains with significant spasm and back pain with movement, her position of comfort is slightly elevated lying on her left side with pillow between her legs. Patient will be admitted for pain control and repeat of her MRI which is currently pending. Will consult pain management and pending MRI results possibly Ortho-Spine. COVID on admission is: NEGATIVE Admission Exam Per Admitting Provider General: awake, alert, no apparent distress Head: Normocephalic, atraumatic ENT: PERRL, EOMI, no pharyngeal exudate, mucous membranes moist Neuro: AAO x 3, speech clear and appropriate, strength intact bilaterally 5/5, decreased sensation to right lower leg mid castorena to just above the ankle, and decrease sensation to right quad, plantar and dorsiflexion of foot is normal and strength and muscle tone are preserved Chest: equal rise and fall of the chest, no accessory muscle use, no heaves or thrills, Clear to auscultation, on room air, Cardiac: Regular rate and rhythm, telemetry reviewed, skin warm dry, cap refill <3 seconds, peripheral pulses +2 no JVD, Grade I systolic murmur, , no edema GI: NABS x 4 quadrants, soft, nontender to palpation, no rebound, guarding or tenderness : Spontaneously voiding, no pain, no CVA tenderness, Extremities: Normal inspection, no peripheral edema or erythema, calfs nontender to palpation Psych: Normal mood and affect Skin: no rash or erythema Principal Diagnosis right lumbar radiculopathy secondary to L3 nerve root compression Discharge Exam General: Grossly A&O. NAD. Cooperative. HEENT: Atraumatic, normocephalic. EOMI Pulm: CTAB. -wheezes, -rales, -rhonchi. No respiratory distress. Cardiac: RRR, -mrg. Abdominal: Nontender, nondistended, soft. Msk: decreased sensation of right lateral thigh and medial calf. Pos right SLR. Discharge Data Allergies Allergy/AdvReac Type Severity Reaction Status Date / Time No Known Allergies Allergy Unknown Verified 06/04/22 11:10 Consultations 06/14/22 11:17 ED Decision to Admit Stat 06/14/22 15:56 Consult Orthopedic Surgery Routine Consult Pain Management Routine Ordered Studies CBC 06/15/22 Range/Units 07:31 WBC 14.42 H (4.8-10.8) K/ul RBC 4.35 (3.93-5.22) M/uL Hgb 14.1 (12.0-16.0) g/dl Hct 41.5 (34.1-44.9) % Plt Count 263 (130-400) K/uL Neut # (Auto) 12.37 H (1.4-6.5) K/uL Lymph # (Auto) 1.44 (1.2-3.4) K/uL Banks # (Auto) 0.45 (0.24-0.82) K/uL Eos # (Auto) 0.00 (0-0.50) K/uL Baso # (Auto) 0.01 (0-0.2) K/uL Comprehensive Metabolic Panel 06/15/22 Range/Units 07:31 Sodium 135 L (136-145) mmol/L Potassium 3.9 (3.5-5.1) mmol/L Chloride 102 (98-107) mmol/L Carbon Dioxide 24 (21-32) mmol/L BUN 22 (6-23) mg/dl Creatinine 0.82 (0.6-1.2) mg/dl Glucose 168 H (70-99(Fasting)) mg/dl Calcium 9.7 (8.5-10.1) mg/dl Intake and Output 06/14/22 06/15/22 06/15/22 22:59 06:59 14:59 Intake Total 240 / 790 550 / 790 Output Total 1900 / 1900 Balance 240 / -1110 -1350 / -1110 Intake: Oral 240 / 790 550 / 790 Output: Urine 1900 / 1900 Other: # Unmeasured Voids 1 Weight 78.7 kg 78.8 kg Weight Measurement Method Chair Scale Built in [facility] Lumbar Spine CT 06/14/22 08:41 CT lumbar spine wo con CLINICAL HISTORY: R sided paraspinal pain, numbness anterior leg TECHNIQUE: Multidetector row helical CT of the lumbar spine was performed without administration of intravenous contrast. Coronal and sagittal reformations were obtained. Automated dose lowering techniques and/or adjustment according to patient size were utilized for this exam. CT DOSE: 668.32 mGy.cm Comparison: None available at the time of this dictation. FINDINGS: For counting purposes, the last complete intervertebral disc space is considered L5-S1. No acute fractures are identified. Degenerative changes are noted in the visualized spine. Vertebral body alignment is within normal limits. Surrounding soft tissues are unremarkable. IMPRESSION: No evidence of acute bony injury. If there is concern for disc disease, MRI can be performed. ACT 112: Negative or not required by law. Electronically signed by: Heraclio Powell M.D. 06/14/2022 10:05 AM Lumbar Spine MRI 06/14/22 11:17 MR lumbar spine wo con CLINICAL HISTORY: L LBP, leg numbness, intractable pain TECHNIQUE: Multiplanar sequences through the lumbar spine were obtained, without intravenous contrast. Comparison: None available at the time of this dictation. FINDINGS: The alignment is anatomical. L1-L2: Minimal disc bulge is noted. L2-L3: Mild posterior disc bulge is seen without significant canal or neuroforaminal stenosis. L3-L4: There is a broad-based posterior disc bulge with resulting mild canal stenosis and bilateral neural foraminal stenosis. L4-L5: Broad-based posterior disc bulge without significant canal stenosis but with mild bilateral neuroforaminal stenosis. L5-S1: Broad-based posterior disc bulge, left greater than right with moderate left and mild right neural foraminal stenosis and no significant canal stenosis. The spinal ligaments are intact, without evidence of disruption or abnormal signal intensity. The spinal cord is normal in signal intensity and there is no evidence of cord contusion. There is no evidence of an extradural, intradural, extramedullary or intramedullary lesion. Visualized soft tissues are normal. IMPRESSION: Multilevel degenerative changes as above. At L5-S1, there is moderate left and mild right neural foraminal stenosis. ACT 112: Negative or not required by law. Electronically signed by: Heraclio Powell M.D. 06/14/2022 2:24 PM ADDENDUM There is a focal right greater than left disc bulge at L3-L4 resulting in moderate right and mild left neuroforaminal stenosis. Hospital Course (1) Neural foraminal stenosis of lumbar spine: 57 year old with past medical history of Sjogren's syndrome, HTN, Anxiety depression, GERD, HTN, Mitral regurg, Rheumatic Fever, Cervical stenosis with surgery, OA + Rheumatoid factor and tobacco use disorder who presents with worsening right radicular sciatica type pain since January 2022. Right lumbar radiculopathy secondary to L3 nerve root compression - Lumbar spine MRI this admission compared with that of 02/25/22. - "There is a focal right greater than left disc bulge at L3-L4 resulting in moderate right and mild left neuroforaminal stenosis." 02/25/22 MRI mentioned the disc bulge on right L3-L4 contacting exiting right L3 nerve, but did not comment on the severity. - "Multilevel degenerative changes. At L5-S1, there is moderate left and mild right neural foraminal stenosis." 02/25/22 MRI L5-S1 was patent on right. - ortho spine consulted: considering surgical intervention; posterior lumbar decompression and instrumented fusion at L3-L4. Deferring home PT at this time. Inpatient PT evaluated. - pain management consulted: recs for discharge home: convert IV to oral steroids. Increasing gabapentin to 300mg TID. Using oxycodone IR instead of tramadol. Using prn BID Baclofen to allow less reliance on Valium (provided while inpatient). Anxiety and depression: - stable. continue Cymbalta as well for pain adjunct Gastroesophageal reflux: - continue home PPI HTN, goal below 140/90: - Not on current therapy Vitamin D deficiency: - continue supplementation Osteoarthritis: - follows rheumatology as outpatient Sjogrens syndrome: - as above Patient was full code this admission. (2) Gastroesophageal reflux: (3) Vitamin D deficiency: (4) Anxiety and depression: (5) Osteoarthritis: (6) Sjogrens syndrome: Total Time Total Time Spent Total Time Spent (In Minutes): <30 Discharge Plan Discharge Items Patient Disposition: Home - Self-Care Reason For Visit: INTRACTABLE BACK PAIN Discharge Diagnosis: right lumbar radiculopathy secondary to L3 nerve root compression Activity: Per Instructions section Non-emergency contact: Primary Care Provider, Surgeon and Pain Management Call non-emergency contact if: you have any medication questions, your symptoms worsen and you have a fever Follow-up/Referrals: Aurora Lockwood, [Primary Care Provider] - Diet: Regular Addtl Attending Provider Instructions: You were admitted to [facility] for right radicular low back / lower extremity pain. An MRI of your lumbar spine was repeated and this showed mild to moderate narrowing of several levels of your lower spine. Specifically, there is a bulging disc at L3-L4 that is pressing on the right side. Dr. Mays was consulted and the plan is for *. The pain management physician was also consulted and recommendations for a temporary pain regimen were provided. medications: - - - Please call your PCP or surgeon's office if you have new or worsened symptoms. Visit the ED if severe/urgent. Specifically, watch out for loss of bladder/bowel control and numbness of groin. Pending Studies at Discharge: No Stand-Alone Forms: My [facility] eMar, Smoking Cessation Medications and DC Order Prescriptions: No Action pantoprazole 40 mg tablet,delayed release (DR/EC) 40 mg PO DAILY Qty: 90 1RF cyclobenzaprine 5 mg tablet 5 mg PO TID PRN (Reason: muscle spasm) Qty: 30 0RF tramadol 50 mg tablet 50 mg PO Q8H PRN (Reason: pain) Qty: 20 0RF duloxetine 60 mg capsule,delayed release(DR/EC) 60 mg PO .COMPLEX Rx Instructions: 60 mg PO Take 1 capsule daily along with 30mg tablet; duloxetine 30 mg capsule,delayed release(DR/EC) 30 mg PO .COMPLEX Rx Instructions: 30 mg PO Take 1 capsule daily along with 90 mg capsule; cholecalciferol (vitamin D3) See Rx Instructions PO .COMPLEX Label Comments: PO 5,000 IU daily.; Rx Instructions: PO 5,000 IU daily.; diclofenac sodium 75 mg tablet,delayed release (DR/EC) 75 mg PO BID PRN (Reason: pain) Qty: 60 0RF methylprednisolone [Medrol (Mateusz)] 4 mg tablets,dose pack See Rx Instructions .ROUTE .COMPLEX Qty: 21 0RF Rx Instructions: Take PO as directed; Admission Data Admit Date/Time: 06/14/22 12:16 Attending Provider: Katelynn Huber Admit Provider: Roosevelt Gama Primary Care Provider: Aurora Lockwood. Other Providers: Roosevelt Gama ; León Mays ; Kasey Dasilva Resident Activity Tracking Resident Involvement: Resident Care Provided Care Provided: Adult Hospital Medicine
--- NOTE | 2022-06-15 13:02 | Electrocardiogram Report ---
Test Reason : Blood Pressure : / mmHG Vent. Rate : 096 BPM Atrial Rate : 096 BPM P-R Int : 140 ms QRS Dur : 084 ms QT Int : 360 ms P-R-T Axes : 071 049 067 degrees QTc Int : 454 ms Poor data quality, interpretation may be adversely affected Normal sinus rhythm Normal ECG When compared with ECG of 14-JAN-2007 15:00, Vent. rate has increased BY 38 BPM Confirmed by Fredrick Woodall ([id number]) on 06/15/2022 1:01:47 PM Referred By: REFERRED SELF Confirmed By:Fredrick Woodall
[2022-06-15] MEDS ORDERED: MoRPHine SULFATE 2 MG/ML CARP IV STA (16:51)
[2022-06-15] MEDS: POLYETHYLENE (MIRALAX) 17 GM PACK PO SCH ×2 (17:40→21:10)
[2022-06-15] MEDS ORDERED: ENOXAPARIN INJ 40 MG/0.4 ML SYR SQ SCH (21:00)
[2022-06-15] MEDS: ACETAMINOPHEN 1000 MG/100 ML IV IV SCH (22:23)
[2022-06-16] MEDS: MoRPHine SULFATE 4 MG/ML 1 ML CARP\\VIAL IV PRN ×3 (05:20→17:59)
[2022-06-16 06:36] LABS: BUN Creatinine Ratio 29.8 (10-20); Calcium 9.2 mg/dl (8.5-10.1); Creatinine Clr Calc Pharmacy 73.4 ml/min; Est GFR (African American) 89.4 ml/min; Est GFR (Non-African American) 77.2 ml/min; Magnesium 2.1 mg/dl (1.7-2.4); Potassium 4.1 mmol/L (3.5-5.1)
--- NOTE | 2022-06-16 06:53 | Hospitalist Progress Note ---
Date of Service June 16, 2022 Assessment & Plan (1) Neural foraminal stenosis of lumbar spine: Plan: 57 year old with past medical history of Sjogren's syndrome, HTN, Anxiety depression, GERD, HTN, mitral rerurg, rheumatic fever, cervical stenosis with surgery, OA + Rheumatoid factor, and tobacco use disorder who presents with worsening right radicular sciatica type pain since January 2022. Right lumbar radiculopathy secondary to L3 nerve root compression - Lumbar spine MRI this admission compared with that of 02/25/22. - "There is a focal right greater than left disc bulge at L3-L4 resulting in moderate right and mild left neuroforaminal stenosis." 02/25/22 MRI mentioned the disc bulge on right L3-L4 contacting exiting right L3 nerve, but did not comment on the severity. - "Multilevel degenerative changes. At L5-S1, there is moderate left and mild right neural foraminal stenosis." 02/25/22 MRI L5-S1 was patent on right. - pain management consulted: recs for discharge home: PO Medrol. Increasing gabapentin to 300mg TID. Using oxycodone IR instead of tramadol. Using BID Baclofen as needed to allow less reliance on Valium (provided while inpatient). - current inpatient regimen: scheduled Baclofen 10mg BID, scheduled Tylenol 1000mg IV q8h, prn IV morphine 3mg q6h for 6-10 pain after failing Tylenol, gabapentin 300mg PO TID, Cymbalta 90mg daily, and Lidocaine patch qAM. Valium has been discontinued. Q12h prn Valium 5mg. - ortho spine consulted: considering surgical intervention; posterior lumbar decompression and instrumented fusion at L3-L4. Deferring home PT at this time. Inpatient PT evaluated. Anxiety and depression: - stable. continue Cymbalta as well for pain adjunct Leukocytosis - secondary to steroid use, neutrophil demargination. no clinical signs of infection Constipation - scheduled Miralax BID. Colace. HTN, goal below 140/90: - Not on current therapy Gastroesophageal reflux: - continue home PPI Vitamin D deficiency: - continue supplementation Osteoarthritis: - follows rheumatology as outpatient Sjogrens syndrome: - as above FEN/GI: DM2 diet ordered. Not diabetic, but has impaired fasting glucose and is on steroids. No IV fluids. ppx: sq Lovenox dispo: med surg code: full Admission and Anticipated Discharge Date Admission Date: June 14, 2022 Subjective Patient had exacerbation of right lower extremity muscle spasm. She is requesting Valium which was discontinued yesterday. She rated her pain as 9/10. Denies other symptoms. Review of Systems Review of Systems: All systems reviewed & are unremarkable except as noted in HPI & below Physical Exam Physical Exam: General: Grossly A&O. No acute distress. Cooperative. HEENT: Atraumatic, normocephalic. EOMI Pulm: CTAB. -wheezes, -rales, -rhonchi. No respiratory distress. Cardiac: RRR, -mrg. Abdominal: Nontender, nondistended, soft. Msk: Positive right straight leg raise. Results & Data Results & Data ([facility]) Vital Signs (Past 12 Hours) Vital Signs Temp Pulse Resp BP Pulse Ox O2 Del Method 06/15/22 23:45 36.5 C 82 18 128/81 95 Room Air Resident Activity Tracking Resident Involvement: Resident Care Provided Care Provided: Adult Hospital Medicine
[2022-06-16 06:54] LABS: Basophils # (auto) 0.03 K/uL (0-0.2); Basophils % (auto) 0.1 %; Eosinophils # (auto) 0.01 K/uL (0-0.50); Hematocrit (blood only) 42.1 % (34.1-44.9); Hemoglobin 13.6 g/dl (12.0-16.0); Immature Granulocytes # (auto) 0.21 K/uL (0.00-0.02); Lymphocytes % (auto) 9.4 %; Mean Corpuscular Hemoglobin 32.3 pg (25.0-34.0); Mean Corpuscular Hgb Conc 32.3 g/dL (32.0-36.0); Mean Platelet Volume 9.6 fL (9.4-12.3); Monocytes # (auto) 1.08 K/uL (0.24-0.82); Monocytes % (auto) 5.1 %; Neutrophils # (auto) 17.95 K/uL (1.4-6.5); Neutrophils % (auto) 84.4 %; Platelet Count 271 K/uL (130-400); RDW Coefficient of Variation 13.1 % (11.5-14.5); RDW Standard Deviation 47.9 fL (36.4-46.3); Red Blood Count 4.21 M/uL (3.93-5.22); White Blood Count 21.28 K/ul (4.8-10.8)
[2022-06-16] MEDS: ACETAMINOPHEN 1000 MG/100 ML IV IV SCH ×2 (06:54→14:05)
[2022-06-16] MEDS: methylPREDNISolone 4 MG TAB PO SCH ×3 (06:54→17:16)
[2022-06-16] MEDS: BACLOFEN 10 MG TAB PO SCH (07:55)
[2022-06-16] MEDS: DOCUSATE SODIUM 100 MG CAP PO SCH (07:56)
[2022-06-16] MEDS: DULoxetine HCL 30 MG CAP PO SCH (07:56)
[2022-06-16] MEDS: GABAPENTIN 300 MG CAP PO SCH ×2 (07:57→14:06)
[2022-06-16] MEDS: PANTOprazole 40 MG TAB PO SCH (07:58)
[2022-06-16] MEDS: LIDOCAINE 5% 1 PATCH TD SCH (07:58)
[2022-06-16] MEDS: POLYETHYLENE (MIRALAX) 17 GM PACK PO SCH (07:58)
[2022-06-16] MEDS ORDERED: diazePAM 5 MG TABLET PO ONE ×2 (09:25→16:40)
--- NOTE | 2022-06-16 16:26 | Discharge Summary ---
Date of Service June 16, 2022 Admission HPI Per Admitting Provider Primary Care Provider: Aurora Lockwood, DO 57 YOF with medical history of: Sjogren's syndrome, HTN, Anxiety depression, GERD, HTN, Mitral regurge, Rheumatic Fever, Cervical stenosis with surgery, OA + Rhematoid factor, smoker. Patient comes to the EMD today for increase in lower right sided back pain, with pain radiating down her right leg and terminating at mid castorena. The patient states that this got acutely worse over the past 2 days and now is unbearable. She states that this started around January with worsening of right sided back and upper leg pain through her groin and into mid quad. It is worse with standing for prolonged period of times, this was exacerbated by work- where she stands and lifts objects. She has been off work since April. Patient had MRI done in February 2022 which was interpreted as asymmetric disc bulge L3-L4 with foramen narrows and contacts L3 nerve root, L5-S1 with recess narrowing at the bulge contacting S1 nerve root with left foraminal stenosis and contact of lt nerve. She has followed up with [facility] (DR. Piña) and has received injections for this- last seen in 06/03/22 and had block performed as well as some discussion of possible radio-frequency ablation in future. Patient has been on her couch over the past week secondary to pain. The pain worsens when she stands or flexes forward. She has not noted any weakness in her leg but notes sensation change at the L2-L3 distribution. She was trialed with gabapentin in the past and stopped this secondary to finding no benefit. She was previously doing PT at home as well as chiropractor visits, however she has not been able to get manipulated on her most recent visits secondary to pain. Currently she was on Medrol 4mg, Ultram, Tylenol, Diclofenac, cyclobenzaprine, and Cymbalta. In the EMD the patient received- Toradol, Solumederol 60mg IV, Lidocaine patch, Morphine, Tylneol, and valium PO. CT of her lumbar was performed. She remains with significant spasm and back pain with movement, her position of comfort is slightly elevated lying on her left side with pillow between her legs. Patient will be admitted for pain control and repeat of her MRI which is currently pending. Will consult pain management and pending MRI results possibly Ortho-Spine. COVID on admission is: NEGATIVE Admission Exam Per Admitting Provider General: awake, alert, no apparent distress Head: Normocephalic, atraumatic ENT: PERRL, EOMI, no pharyngeal exudate, mucous membranes moist Neuro: AAO x 3, speech clear and appropriate, strength intact bilaterally 5/5, decreased sensation to right lower leg mid castorena to just above the ankle, and decrease sensation to right quad, plantar and dorsiflexion of foot is normal and strength and muscle tone are preserved Chest: equal rise and fall of the chest, no accessory muscle use, no heaves or thrills, Clear to auscultation, on room air, Cardiac: Regular rate and rhythm, telemetry reviewed, skin warm dry, cap refill <3 seconds, peripheral pulses +2 no JVD, Grade I systolic murmur, , no edema GI: NABS x 4 quadrants, soft, nontender to palpation, no rebound, guarding or tenderness : Spontaneously voiding, no pain, no CVA tenderness, Extremities: Normal inspection, no peripheral edema or erythema, calfs nontender to palpation Psych: Normal mood and affect Skin: no rash or erythema Principal Diagnosis right lumbar radiculopathy secondary to L3 nerve root compression Discharge Exam General: Grossly A&O. No acute distress. Cooperative. HEENT: Atraumatic, normocephalic. EOMI Pulm: CTAB. -wheezes, -rales, -rhonchi. No respiratory distress. Cardiac: RRR, -mrg. Abdominal: Nontender, nondistended, soft. Msk: Positive right straight leg raise. Discharge Data Allergies Allergy/AdvReac Type Severity Reaction Status Date / Time No Known Allergies Allergy Unknown Verified 06/04/22 11:10 Consultations 06/14/22 11:17 ED Decision to Admit Stat 06/14/22 15:56 Consult Orthopedic Surgery Routine Consult Pain Management Routine Ordered Studies CBC 06/16/22 Range/Units 05:52 WBC 21.28 H (4.8-10.8) K/ul RBC 4.21 (3.93-5.22) M/uL Hgb 13.6 (12.0-16.0) g/dl Hct 42.1 (34.1-44.9) % Plt Count 271 (130-400) K/uL Neut # (Auto) 17.95 H (1.4-6.5) K/uL Lymph # (Auto) 2.00 (1.2-3.4) K/uL Wise # (Auto) 1.08 H (0.24-0.82) K/uL Eos # (Auto) 0.01 (0-0.50) K/uL Baso # (Auto) 0.03 (0-0.2) K/uL Comprehensive Metabolic Panel 06/16/22 Range/Units 05:52 Sodium 137 (136-145) mmol/L Potassium 4.1 (3.5-5.1) mmol/L Chloride 105 (98-107) mmol/L Carbon Dioxide 25 (21-32) mmol/L BUN 25 H (6-23) mg/dl Creatinine 0.84 (0.6-1.2) mg/dl Glucose 140 H (70-99(Fasting)) mg/dl Calcium 9.2 (8.5-10.1) mg/dl Intake and Output 06/16/22 06/16/22 06/16/22 06:59 14:59 22:59 Intake Total 100 / 100 360 / 360 Output Total 2000 / 2000 Balance 100 / 100 -1640 / -1640 Intake: Oral 100 / 100 360 / 360 Output: Urine 1999 / 1999 Other: # Unmeasured Voids 2 Weight 78.8 kg Patient Weight 06/17/22 06:59 Weight 78.[address] 06/14/22 08:41 CT lumbar spine wo con CLINICAL HISTORY: R sided paraspinal pain, numbness anterior leg TECHNIQUE: Multidetector row helical CT of the lumbar spine was performed without administration of intravenous contrast. Coronal and sagittal reformations were obtained. Automated dose lowering techniques and/or adjustment according to patient size were utilized for this exam. CT DOSE: 668.32 mGy.cm Comparison: None available at the time of this dictation. FINDINGS: For counting purposes, the last complete intervertebral disc space is considered L5-S1. No acute fractures are identified. Degenerative changes are noted in the visualized spine. Vertebral body alignment is within normal limits. Surrounding soft tissues are unremarkable. IMPRESSION: No evidence of acute bony injury. If there is concern for disc disease, MRI can be performed. ACT 112: Negative or not required by law. Electronically signed by: Heraclio Powell M.D. 06/14/2022 10:05 AM Lumbar Spine MRI 06/14/22 11:17 ADDENDUM There is a prominent right-sided disc bulge at L3-L4 which appears to impinge upon the exiting nerve root. Electronically signed by: Heraclio Powell M.D. 06/16/2022 10:45 AM ADDENDUM END ADDENDUM There is a focal right greater than left disc bulge at L3-L4 resulting in moderate right and mild left neuroforaminal stenosis. Electronically signed by: Heraclio Powell M.D. 06/15/2022 12:11 PM ADDENDUM END MR lumbar spine wo con CLINICAL HISTORY: L LBP, leg numbness, intractable pain TECHNIQUE: Multiplanar sequences through the lumbar spine were obtained, without intravenous contrast. Comparison: None available at the time of this dictation. FINDINGS: The alignment is anatomical. L1-L2: Minimal disc bulge is noted. L2-L3: Mild posterior disc bulge is seen without significant canal or neuroforaminal stenosis. L3-L4: There is a broad-based posterior disc bulge with resulting mild canal stenosis and bilateral neural foraminal stenosis. L4-L5: Broad-based posterior disc bulge without significant canal stenosis but with mild bilateral neuroforaminal stenosis. L5-S1: Broad-based posterior disc bulge, left greater than right with moderate left and mild right neural foraminal stenosis and no significant canal stenosis. The spinal ligaments are intact, without evidence of disruption or abnormal signal intensity. The spinal cord is normal in signal intensity and there is no evidence of cord contusion. There is no evidence of an extradural, intradural, extramedullary or intramedullary lesion. Visualized soft tissues are normal. IMPRESSION: Multilevel degenerative changes as above. At L5-S1, there is moderate left and mild right neural foraminal stenosis. ACT 112: Negative or not required by law. Electronically signed by: Heraclio Powell M.D. 06/14/2022 2:24 PM Hospital Course (1) Neural foraminal stenosis of lumbar spine: 57 year old with past medical history of Sjogren's syndrome, HTN, Anxiety depression, GERD, HTN, mitral rerurg, rheumatic fever, cervical stenosis with surgery, OA + Rheumatoid factor, and tobacco use disorder who presents with worsening right radicular sciatica type pain since January 2022. Right lumbar radiculopathy secondary to L3 nerve root compression: - Lumbar spine MRI this admission compared with that of 02/25/22. - "There is a focal right greater than left disc bulge at L3-L4 resulting in moderate right and mild left neuroforaminal stenosis." 02/25/22 MRI mentioned the disc bulge on right L3-L4 contacting exiting right L3 nerve, but did not comment on the severity. - "Multilevel degenerative changes. At L5-S1, there is moderate left and mild right neural foraminal stenosis." 02/25/22 MRI L5-S1 was patent on right. ---- inpatient regimen: scheduled Baclofen 10mg BID, scheduled Tylenol 1000mg IV q8h, prn IV morphine 3mg q6h for 6-10 pain after failing Tylenol, gabapentin 300mg PO TID, Cymbalta 90mg daily, and Lidocaine patch qAM. Valium (q6h->discontinued->added back on 2 doses in 1 day). - pain management consulted: recs appreciated. Discontinued Tramadol and Flexeril. - ortho spine consulted: considering surgical intervention; will arrange in outpatient setting; posterior lumbar decompression and instrumented fusion at L3-L4. Inpatient PT evaluated. Ortho spine will contact patient to set up home PT. ---- home regimen upon discharge: PO tylenol 1000mg q8h scheduled. Cymbalta 90mg daily. Gabapentin 300mg TID. Baclofen 10mg BID (temporary use 1 month). Baclofen 5mg BID prn (temporary use ~10 days). oxycodone 5mg q6h prn (temporary use ~10 days). 4 more days of Medrol taper prescribed. Anxiety and depression: - stable. continue Cymbalta as well for pain adjunct Leukocytosis: - secondary to steroid use, neutrophil demargination. no clinical signs of infection Constipation: - Miralax and Colace provided while inpatient HTN, goal below 140/90: - Not on current therapy Gastroesophageal reflux: - continue home PPI Vitamin D deficiency: - continue supplementation Osteoarthritis: - follows rheumatology as outpatient Sjogrens syndrome: - as above Plan Patient was full code this admission. Total Time Total Time Spent Total Time Spent (In Minutes): <30 Discharge Plan Discharge Items Patient Disposition: Home - Self-Care Reason For Visit: INTRACTABLE BACK PAIN Discharge Diagnosis: right lumbar radiculopathy secondary to L3 nerve root compression Activity: Per Instructions section Non-emergency contact: Primary Care Provider, Surgeon and Pain Management Call non-emergency contact if: you have any medication questions, your symptoms worsen and you have a fever Follow-up/Referrals: Aurora Lockwood DO [Primary Care Provider] - (pcp followup within 2 weeks. ) Diet: Regular Addtl Attending Provider Instructions: You were admitted to [facility] for right radicular low back / lower extremity pain. An MRI of your lumbar spine was repeated and this showed mild to moderate narrowing of several levels of your lower spine. Specifically, there is a bulging disc at L3-L4 that is pressing on the right side. The pain management physician was also consulted and recommendations for a temporary pain regimen were provided. Dr. Mays (spine surgeon was consulted and the plan is for surgery in the near future. He will be contacting you to set up outpatient therapy and to get insurance approval for surgery. Previous medications that are discontinued upon discharge: Flexeril (cyclobenzaprine) Medrol dose pack (a new prescription will be prescribed; see below) tramadol New prescriptions baclofen gabapentin Medrol (10 tabs total. 4 tabs spread out 3 hours on 06/17. 3 tabs spread out 4 hours on 06/18, 2 tabs spread out 12 hours on 06/19, 1 tab on 06/20. A small amount of these controlled substances will be sent. please use as sparingly as possible. The prescriptions will be sent separately and will be available by tomorrow morning. - oxycodone (for pain) - Valium (for spasm), no more than twice a day Take over the counter Tylenol 1000mg every 8 hours for the next 2 weeks (temporarily). This helped your pain while you were in the hospital and will result in less use of the narcotic medications. Please call your PCP or surgeon's office if you have new or worsened symptoms. Visit the ED if severe/urgent. Specifically, watch out for loss of bladder/bowel control and numbness of groin. Addtl Grounds Worker Provider Instructions: [facility] will call patient to schedule outpatient physical therapy and proceed with pursuing possible surgical intervention from there Pending Studies at Discharge: No Stand-Alone Forms: My [facility] [employer], Smoking Cessation Medications and DC Order Prescriptions: New baclofen 10 mg Tablet 10 mg PO BID 30 Days Qty: 60 0RF gabapentin 300 mg Capsule 300 mg PO TID 30 Days Qty: 90 0RF methylprednisolone 4 mg Tablet See Rx Instructions .ROUTE .COMPLEX 4 Days Qty: 10 0RF Rx Instructions: 10 tabs total. 4 tabs on 06/17/22, 3 tabs on 06/18/22, 2 tabs on 06/19/22, and 1 tab on 06/20/22. For the days with multiple tablets, take 4-12 hours apart. diazepam [Valium] 5 mg tablet 5 mg PO BID PRN (Reason: anxiety) Qty: 20 0RF oxycodone 5 mg tablet 5 mg PO Q6H PRN (Reason: pain) Qty: 36 0RF Continued pantoprazole 40 mg tablet,delayed release (DR/EC) 40 mg PO DAILY Qty: 90 1RF duloxetine 60 mg capsule,delayed release(DR/EC) 60 mg PO .COMPLEX Rx Instructions: 60 mg PO Take 1 capsule daily along with 30mg tablet; duloxetine 30 mg capsule,delayed release(DR/EC) 30 mg PO .COMPLEX Rx Instructions: 30 mg PO Take 1 capsule daily along with 90 mg capsule; cholecalciferol (vitamin D3) See Rx Instructions PO .COMPLEX Label Comments: PO 5,000 IU daily.; Rx Instructions: PO 5,000 IU daily.; diclofenac sodium 75 mg tablet,delayed release (DR/EC) 75 mg PO BID PRN (Reason: pain) Qty: 60 0RF Discontinued cyclobenzaprine 5 mg tablet 5 mg PO TID PRN (Reason: muscle spasm) Qty: 30 0RF tramadol 50 mg tablet 50 mg PO Q8H PRN (Reason: pain) Qty: 20 0RF methylprednisolone [Medrol (Mateusz)] 4 mg tablets,dose pack See Rx Instructions .ROUTE .COMPLEX Qty: 21 0RF Rx Instructions: Take PO as directed; Discharge Orders: Discharge Order (Routine); Ordered 06/16/22 Ordered By: Jake Brannon Admission Data Admit Date/Time: 06/14/22 12:16 Attending Provider: Katelynn Huber Admit Provider: Roosevelt Gama Primary Care Provider: Aurora Lockwood Other Providers: Roosevelt Gama ; León Mays ; Kasey Dasilva Other Interventions: Discharge Summary Assessment (RN) Last Done: 06/16/22 17:38 Supervising Physician Co-Signing Physician Notes Resident Physician Supervision Note: I independently interviewed and examined the patient and verified the grigsby history and physical, reviewed labs and image studies and agree with resident findings and care plan. Resident Activity Tracking Resident Involvement: Resident Care Provided Care Provided: Adult Hospital Medicine
[2022-06-16] MEDS ORDERED: methylPREDNISolone 4 MG TAB PO SCH (21:00)
[2022-06-17] MEDS ORDERED: methylPREDNISolone 4 MG TAB PO SCH (07:00)
[2022-06-18] MEDS ORDERED: methylPREDNISolone 4 MG TAB PO SCH (07:00)
[2022-06-19] MEDS ORDERED: methylPREDNISolone 4 MG TAB PO SCH (07:00)
[2022-06-20] MEDS ORDERED: methylPREDNISolone 4 MG TAB PO SCH (07:00)
== END 2022-06-16 19:45 | disposition home or self-care (01) ==
LOC: ED 08:18 → INTOOBSV 12:16 → SUATTDRO 12:16 → 4W 12:16

== ENCOUNTER 2022-06-21 13:14 | Inpatient (IN) ==
--- NOTE | 2022-06-21 13:39 | Emergency Department Note ---
Impression & Plan Lumbar disc disease, Paresthesia of right leg, Intractable low back pain, Right lumbar radiculopathy ED Provider Note CHIEF COMPLAINT: Low back pain HISTORY OF PRESENT ILLNESS: This 57-year-old female patient presents to the emergency department via private vehicle complaining of pain in the low back which began months ago. Patient states she was referred here by Dr. Mays to be admitted to have surgery on her low back tomorrow. She states she was discharged home later last week on Oxy IR, but does not like taking it because "it is too addictive". The pain is now constant and worse with movement. The pain radiates down the right lower extremity. The patient notes the pain as b urning and aching and a 10/10. The patient denies any loss of control of their bowel or bladder functions. There has been no leg weakness. The right leg is numb. No nausea or vomiting or abdominal pain. No chest pain or shortness of breath. No dysuria or increased urinary frequency. No fever or recent illness. Patient states she has bulging disc at L3, L4. REVIEW OF SYSTEMS: A 10 system review of systems was performed with positives and pertinent negatives listed in the history of present illness. All other systems were reviewed and are negative. ALLERGIES: None PHYSICAL EXAM: VITALS: Vitals are noted on the nurse's note and reviewed by myself. Vital signs stable. GENERAL: This is a 57-year-old white female, in no acute distress, nondiaphoretic, well-developed well-nourished. SKIN: The skin was without rashes, erythema, edema, or bruising. Capillary refill less than 2 seconds. NECK: Supple without nuchal rigidity. No cervical spine tenderness. No paraspinous muscle tenderness. HEART: Regular rate and rhythm without murmurs gallops or rubs. LUNGS: Clear to auscultation bilaterally without wheezes, rales or rhonchi. ABDOMEN: Positive bowel sounds x 4. Normal tympanic percussion. Soft, nontender, without masses or organomegaly. [place] sign negative. MUSCULOSKELETAL: No muscle atrophy, erythema, or edema noted of the back. There is no tenderness over the lumbar spinous processes. There is tenderness over the paraspinous muscles on the right. There is no tenderness over the thoracic spine or paraspinous muscles. There are no muscle spasms present. The patient is slow to move around with maximum tenderness with sitting from a lying position. NEURO: Patient was alert and oriented to person place and time. Normal sensation to light and sharp touch. Deep tendon reflexes 2+ in the lower extremities. Dorsalis pedis pulse 2+ bilaterally. Strength 5/5 and equal in the bilateral lower extremities. EMERGENCY DEPARTMENT COURSE: The patient was seen and evaluated as above. Patient has symptoms consistent with the low back pain she has been experiencing for the past several months. No evidence of cauda equina or epidural abscess at this time. IV access obtained, labs drawn. I contacted Dr. Mays. He did agree to admit the patient and will likely proceed with surgery tomorrow. Please see his dictation regarding this admission. The patient was agreeable to treatment plan. She did not require any medication while in the emergency department. Differential diagnosis includes musculoskeletal, disc herniation, fracture, metastatic disease, cord compression, discitis, sciatica, cauda equina, infection, aortic disease, renal colic, gastrointestinal, as well as other pathologies. I attest that I have personally reviewed the patient's current medication list. Blood Pressure Screening: Patient was found to have a slightly elevated blood pressure due to circumstances. I do not believe that the patient requires hypertension monitoring. The chart was completed utilizing [employer] Speech voice recognition software. Grammatical errors, random word insertions, pronoun errors, and incomplete sentences are an occasional consequence of this system due to software limitations, ambient noise, and hardware issues. Any formal questions or concerns about the content, text, or information contained within the body of this dictation should be directly addressed to the provider for clarification. Past Med/Surg History Medical History Cervical stenosis of spinal canal History of parotitis Lumbar spondylosis Migraine without aura Osteoarthritis Recurrent cold sores Rheumatic fever Sjogrens syndrome Surgical History History of hernia repair History of hysterectomy still w/ ovary History of kidney surgery L ureter transplant Status post cervical spinal fusion (01/20/18) Family History Mother Hypertension Breast cancer Diabetes Father No known health problems Denies family history of Ovarian cancer Prostate cancer Myocardial infarction Colorectal cancer Social History Smoking Status: Current every day smoker Tobacco Type: Cigarettes packs per day: 0.5; Cigarettes Per Day: 6; Second Hand Exposure: Yes; Do You Dip or Chew Tobacco: No; Hx Alcohol Use: Yes Alcohol type: beer Hx Substance Use: No Preferred Language: Hebrew Communication Ability: Effective Visual Impairment: No Limitations Hearing Ability: Normal 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 Beliefs That Will Affect Care: None marital status: Current Living Situation: Spouse and Family current occupational status: employed Other Information That Helps Us Care for You: No Feels Safe at Home: Yes Safety Concerns: Feels Safe At This Time caffeine: Yes Dental Care, Regularly: Yes Physical Activity Frequency: Daily Seatbelt Use: always Assistive Devices: None Allergies Allergies Allergy/AdvReac Type Severity Reaction Status Date / Time No Known Allergies Allergy Unknown Verified 06/21/22 15:16 Home Meds Home Medications Medication Instructions Recorded Confirmed duloxetine 30 mg capsule,delayed 30 mg PO DAILY 02/27/22 06/21/22 release duloxetine 60 mg capsule,delayed 60 mg PO DAILY 02/27/22 06/21/22 release cholecalciferol (vitamin D3) 125 5,000 unit PO DAILY 06/21/22 06/21/22 mcg (5,000 unit) tablet Previous Rx's Medication Instructions Recorded pantoprazole 40 mg tablet,delayed 40 mg PO DAILY #90 tabs 09/04/20 release diclofenac sodium 75 mg 75 mg PO BID PRN pain #60 tabs 06/04/22 tablet,delayed release baclofen 10 mg tablet 10 mg PO BID 30 days #60 tabs 06/16/22 diazepam 5 mg tablet (Valium) 5 mg PO BID PRN anxiety #20 tabs 06/16/22 gabapentin 300 mg capsule 300 mg PO TID 30 days #90 caps 06/16/22 oxycodone 5 mg tablet 5 mg PO Q6H PRN pain #14 tabs 06/18/22 Results & Data (ED) Vital Signs Vital Signs - 24 hr 06/21/22 13:14 Temperature 36.8 C Temperature Source Oral Pulse Rate 101 H Respiratory Rate 16 Blood Pressure 145/78 H Blood Pressure Mean 100 Pulse Oximetry 95 Sepsis Recent Fever Within 48 Hours No Sepsis New/Unexplained Change in Mental Status No Sepsis Action Taken by Nursing No Action Required Laboratory Data Result diagrams: 06/21/22 13:43 06/21/22 13:43 Lab Results 06/21/22 06/21/22 06/21/22 Range/Units 13:43 13:43 13:43 WBC 9.33 (4.8-10.8) K/ul RBC 4.18 (3.93-5.22) M/uL Hgb 13.7 (12.0-16.0) g/dl Hct 42.0 (34.1-44.9) % MCV 100.5 H (80.0-100.0) fL MCH 32.8 (25.0-34.0) pg MCHC 32.6 (32.0-36.0) g/dL RDW Std Deviation 49.7 H (36.4-46.3) fL RDW Coeff of Randy 13.3 (11.5-14.5) % Plt Count 238 (130-400) K/uL MPV 8.9 L (9.4-12.3) fL Immature Gran % (Auto) 0.8 % Neut % (Auto) 59.6 % Lymph % (Auto) 29.7 % [place] % (Auto) 7.6 % Eos % (Auto) 1.8 % Baso % (Auto) 0.5 % Neut # (Auto) 5.56 (1.4-6.5) K/uL Lymph # (Auto) 2.77 (1.2-3.4) K/uL [place] # (Auto) 0.71 (0.24-0.82) K/uL Eos # (Auto) 0.17 (0-0.50) K/uL Baso # (Auto) 0.05 (0-0.2) K/uL Immature Gran # (Auto) 0.07 H (0.00-0.02) K/uL Sodium 139 (136-145) mmol/L Potassium 3.9 (3.5-5.1) mmol/L Chloride 107 (98-107) mmol/L Carbon Dioxide 27 (21-32) mmol/L Anion Gap 5 (3-11) BUN 23 (6-23) mg/dl Creatinine 0.95 (0.6-1.2) mg/dl Est Cr Clr Drug Dosing 64.7 ml/min Est GFR ( Amer) 77.1 ml/min Est GFR (Non-Af Amer) 66.5 ml/min BUN/Creatinine Ratio 24.2 H (10-20) Glucose 118 H (70-99(Fasting)) mg/dl Calcium 9.2 (8.5-10.1) mg/dl Total Bilirubin 0.4 (0.2-1.0) mg/dl AST 13 (13-39) U/L ALT 19 (7-52) U/L Alkaline Phosphatase 70 (34-104) U/L Total Protein 6.4 (6.0-8.3) gm/dl Albumin 4.1 (3.4-5.0) gm/dl Globulin 2.3 L (2.5-4.0) gm/dl Albumin/Globulin Ratio 1.8 (0.9-2) SARS-CoV-2, RNA, NAAT NEGATIVE (NEGATIVE) Administered Medications Lactated Ringer's (Lr) 1,000 mls @ 75 mls/hr IV .[id number] MAXWELL Stop: 07/21/22 16:14 Last Admin: 06/21/22 16:28 Dose: 75 mls/hr Documented By: YESENIA Oxycodone HCl (Oxycodone Hcl Ir 5 Mg Tab (Immediate Release)) 5 - 10 mg PO Q4H PRN PRN Reason: mod to severe pain Stop: 07/05/22 15:55 Last Admin: 06/21/22 17:23 Dose: 10 mg Documented By: YESENIA Discontinued Medications Hydromorphone HCl (Hydromorphone Inj 1 Mg/Ml Syringe) Confirm Administered Dose 1 mg .ROUTE .STK-MED ONE Stop: 06/21/22 15:26 Last Admin: 06/21/22 15:27 Dose: 1 mg Documented By: AMY Discharge Plan Visit Data Chief Complaint: Back Injury/Pain Stated Complaint: BACK PAIN ED Provider: Jesse Li ED Midlevel Provider: Preeti Braxton Discharge Problem: Lumbar disc disease, Paresthesia of right leg, Intractable low back pain, Right lumbar radiculopathy Patient Disposition: Admitted As Inpatient Discharge Instructions Interventions: ED Discharge Assessment Last Done: 06/21/22 15:45
[2022-06-21 13:55] LABS: Basophils # (auto) 0.05 K/uL (0-0.2); Basophils % (auto) 0.5 %; Eosinophils # (auto) 0.17 K/uL (0-0.50); Eosinophils % (auto) 1.8 %; Hemoglobin 13.7 g/dl (12.0-16.0); Immature Granulocytes # (auto) 0.07 K/uL (0.00-0.02); Immature Granulocytes % (auto) 0.8 %; Lymphocytes # (auto) 2.77 K/uL (1.2-3.4); Lymphocytes % (auto) 29.7 %; Mean Corpuscular Hemoglobin 32.8 pg (25.0-34.0); Mean Corpuscular Hgb Conc 32.6 g/dL (32.0-36.0); Mean Corpuscular Volume 100.5 fL (80.0-100.0); Mean Platelet Volume 8.9 fL (9.4-12.3); Monocytes # (auto) 0.71 K/uL (0.24-0.82); Monocytes % (auto) 7.6 %; Neutrophils # (auto) 5.56 K/uL (1.4-6.5); Neutrophils % (auto) 59.6 %; Platelet Count 238 K/uL (130-400); RDW Coefficient of Variation 13.3 % (11.5-14.5); RDW Standard Deviation 49.7 fL (36.4-46.3); Red Blood Count 4.18 M/uL (3.93-5.22); White Blood Count 9.33 K/ul (4.8-10.8)
[2022-06-21 14:36] LABS: Albumin Globulin Ratio 1.8 (0.9-2); Albumin Level 4.1 gm/dl (3.4-5.0); BUN Creatinine Ratio 24.2 (10-20); Bilirubin,Total 0.4 mg/dl (0.2-1.0); Calcium 9.2 mg/dl (8.5-10.1); Creatinine Clr Calc Pharmacy 64.7 ml/min; Est GFR (African American) 77.1 ml/min; Est GFR (Non-African American) 66.5 ml/min; Globulin 2.3 gm/dl (2.5-4.0); Potassium 3.9 mmol/L (3.5-5.1); Total Protein 6.4 gm/dl (6.0-8.3)
[2022-06-21] MEDS ORDERED: HYDROmorphone INJ 1 MG/ML SYRINGE ONE (15:25)
[2022-06-21] MEDS ORDERED: ONDANSETRON INJ 2 MG/ML 2 ML VIAL IV PRN (15:56)
[2022-06-21] MEDS ORDERED: HYDROmorphone INJ 0.5 MG/0.5 ML SYR IV PRN (15:56)
[2022-06-21] MEDS ORDERED: LORazepam 0.5 MG in SYRINGE 0.25 ML IV PRN (15:56)
[2022-06-21] MEDS ORDERED: ACETAMINOPHEN 500 MG TAB PO PRN (15:56)
[2022-06-21] MEDS ORDERED: NALOXONE HCL 0.4 MG/1 ML VIAL/CARP IV PRN (15:56)
[2022-06-21] MEDS ORDERED: PROMETHAZINE HCL 12.5 MG in SODIUM CHLORIDE 0.9% 50 ML IV PRN (15:56)
[2022-06-21] MEDS ORDERED: ACETAMINOPHEN 1,000 MG/100 ML VIAL IV PRN (15:56)
[2022-06-21] MEDS ORDERED: ONDANSETRON 4 MG OD TAB PO PRN (15:56)
[2022-06-21] MEDS ORDERED: METOCLOPRAMIDE HCL INJ 5 MG/ML 2 ML VIAL IV PRN (15:56)
[2022-06-21] MEDS ORDERED: MAGNESIUM HYDROXIDE SUSP 30 ML UDC PO PRN (15:56)
[2022-06-21] MEDS: LACTATED RINGER'S 1,000 ML IV SCH (16:28)
[2022-06-21 16:33] LABS: Appearance Urine Clear (Clear); Bilirubin Urine Negative (Negative); Blood Urine Negative (Negative); Color Urine Yellow; Glucose Urine UA Negative (Negative); Ketones Urine Negative (Negative); Leukocyte Esterase Urine Negative (Negative); Nitrite Urine Negative (Negative); Protein Urine Negative (Negative); Specific Gravity Urine 1.011 (1.000-1.030); Urobilinogen Urine Negative (Negative)
[2022-06-21] MEDS: oxyCODONE HCL IR 5 MG TAB (IMMEDIATE RELEASE) PO PRN ×2 (17:23→21:24)
[2022-06-21] MEDS: GABAPENTIN 300 MG CAP PO SCH (21:26)
[2022-06-22] MEDS: HYDROmorphone INJ 1 MG/ML SYRINGE IV PRN ×6 (01:43→21:07)
[2022-06-22] MEDS: LACTATED RINGER'S 1,000 ML IV SCH ×2 (05:56→18:36)
[2022-06-22] MEDS ORDERED: ceFAZolin 2000MG 2,000 MG/15 ML SYR IV SCH (06:00)
--- NOTE | 2022-06-22 06:45 | Hospitalist Consultation ---
Date of Consultation June 22, 2022 Assessment & Plan (1) Neural foraminal stenosis of lumbar spine: per primary service DVT prophylaxis per primary team (2) Acute radicular low back pain: per primary team (3) Anxiety and depression: stable continue cymbalta (4) HTN, goal below 140/90: BP at goal. not on any medicine. (5) Migraine without aura: appears stable. Thank you for allowing us to participate in her care. We will sign off for now. We will chart round, but please contact medicine service is any questions or concerns. History of Present Illness Reason for Consultation: medical management Attending Physician: León Mays DO History of Present Illness 57 yo female is hosptialized for right lumbar radiculopathy. Patient will obtain a lumbar decompression. Hospitalist service was consulted for medical management. PMH: noted below Allergies Allergy/AdvReac Type Severity Reaction Status Date / Time No Known Allergies Allergy Unknown Verified 06/21/22 15:16 Home Medications Medication Instructions Recorded Confirmed Type pantoprazole 40 mg tablet,delayed 40 mg PO DAILY #90 tabs 09/04/20 06/21/22 Rx release duloxetine 30 mg capsule,delayed 30 mg PO DAILY 02/27/22 06/21/22 History release duloxetine 60 mg capsule,delayed 60 mg PO DAILY 02/27/22 06/21/22 History release diclofenac sodium 75 mg 75 mg PO BID PRN pain #60 tabs 06/04/22 06/21/22 Rx tablet,delayed release baclofen 10 mg tablet 10 mg PO BID 30 days #60 tabs 06/16/22 06/21/22 Rx diazepam 5 mg tablet (Valium) 5 mg PO BID PRN anxiety #20 tabs 06/16/22 06/21/22 Rx gabapentin 300 mg capsule 300 mg PO TID 30 days #90 caps 06/16/22 06/21/22 Rx oxycodone 5 mg tablet 5 mg PO Q6H PRN pain #14 tabs 06/18/22 06/21/22 Rx cholecalciferol (vitamin D3) 125 5,000 unit PO DAILY 06/21/22 06/21/22 History mcg (5,000 unit) tablet Patient History Medical History Cervical stenosis of spinal canal History of parotitis Lumbar spondylosis Migraine without aura Osteoarthritis Recurrent cold sores Rheumatic fever Sjogrens syndrome Surgical History History of hernia repair History of hysterectomy still w/ ovary History of kidney surgery L ureter transplant Status post cervical spinal fusion (01/20/18) Family History Mother Hypertension Breast cancer Diabetes Father No known health problems Denies family history of Ovarian cancer Prostate cancer Myocardial infarction Colorectal cancer Social History Smoking Status: Current every day smoker Tobacco Type: Cigarettes packs per day: 0.5; Cigarettes Per Day: 6; Second Hand Exposure: Yes; Do You Dip or Chew Tobacco: No; Hx Alcohol Use: Yes Alcohol type: beer Hx Substance Use: No Preferred Language: Citizen Of [place] Communication Ability: Effective Visual Impairment: No Limitations 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 Beliefs That Will Affect Care: None marital status: Current Living Situation: Spouse and Family current occupational status: employed Other Information That Helps Us Care for You: No Feels Safe at Home: Yes Safety Concerns: Feels Safe At This Time caffeine: Yes Dental Care, Regularly: Yes Physical Activity Frequency: Daily Seatbelt Use: always Assistive Devices: None Review of Systems Constitutional: no fever and no body aches Eyes: no blind spots Ear, Nose, Mouth, Throat: no ear pain Respiratory: no cough Cardiovascular: no chest pain Genitourinary: no dysuria Musculoskeletal: + back pain and + joint pain Integumentary: no acne Neurologic: + paresthesia Psychiatric: no behavioral changes Endocrine: no fatigue Hematologic / Lymphatic: no easy bleeding Allergy / Immunological: no GI upset with certain foods Physical Exam Constitutional: WD/WN, vitals as above Eyes: PERRL, conjunctivae normal, anicteric sclerae ENMT: external ear and nose normal, oropharynx normal Neck: trachea midline, no thyromegaly Respiratory: normal respiratory effort, lungs clear to auscultation Cardiovascular: RRR, no murmur, no edema Gastrointestinal (Abdomen): normal bowel sounds, soft, nontender, no hepatosplenomegaly Musculoskeletal: no cyanosis or clubbing, extremities motor strength 5/5 Skin: no rashes, warm and dry Neurologic: PERRL, EOMI, accommodation nl, no face palsy, no dysarthria Psychiatric: A+Ox3, euthymic affect Lymphatic: no cervical or axillary lymphadenopathy Results & Data Results & Data ([facility]) Vital Signs (Past 12 Hours) Vital Signs Temp Pulse Resp BP Pulse Ox 06/21/22 21:10 36.8 C 74 16 132/87 96 PG Care Time/CCT Total # of Minutes Spent Total Time Spent with Patient: Total time spent is greater than 50% in coordination of care (as documented) at patient's floor/unit and/or counseling patient: Coding Level of Care Code 14656 Inpt Consult Level 3 Diagnoses Neural foraminal stenosis of lumbar spine M48.061 Acute radicular low back pain M54.16 Anxiety and depression F41.9; F32.9 HTN, goal below 140/90 I10 Migraine without aura G43.009
--- NOTE | 2022-06-22 07:49 | History & Physical Report ---
Date of Service June 22, 2022 Assessment & Plan (1) Right lumbar radiculopathy: Plan: Assessment L3-L4 foraminal disc herniation with radiculopathy on the right. Plan at this time the patient is failed extensive course of nonoperative care including medications attempted physical therapy and continues to have severe pain with progressive neuro deficit. Subsequently recommending an urgent lumbar decompression fusion L3-L4. She would require complete facetectomy to safely and adequately decompress the exiting L3 nerve root on the right creating iatrogenic instability and subsequently requiring fusion. Risk-benefit pros cons alternatives were outlined in detail. We will have surgeries performed soon as possible. Admission and Anticipated Discharge Date Admission Date: June 21, 2022 History of Present Illness Chief Complaint: Severe right leg pain Primary Care Provider: Aurora Lockwood DO This is a 57-year-old female well-known to me that has not presented to emergency room 3 times with severe right leg pain. It did require short hospital admission for pain control and pain management consultation. Unfortunately continues to have severe L3 radiculopathy with numbness and pain in the right leg. Is a 10 out of 10. She is having difficulty controlling her symptoms with narcotic medications and has expressed concern regarding addiction. She does describe deficits with a sending descending stairs with quadricep weakness. Left lower extremity is asymptomatic. She is attempted a course of physical therapy without improvement in her pain. Allergies Allergy/AdvReac Type Severity Reaction Status Date / Time No Known Allergies Allergy Unknown Verified 06/21/22 15:16 Home Medications Medication Instructions Recorded Confirmed Type pantoprazole 40 mg tablet,delayed 40 mg PO DAILY #90 tabs 09/04/20 06/21/22 Rx release duloxetine 30 mg capsule,delayed 30 mg PO DAILY 02/27/22 06/21/22 History release duloxetine 60 mg capsule,delayed 60 mg PO DAILY 02/27/22 06/21/22 History release diclofenac sodium 75 mg 75 mg PO BID PRN pain #60 tabs 06/04/22 06/21/22 Rx tablet,delayed release baclofen 10 mg tablet 10 mg PO BID 30 days #60 tabs 06/16/22 06/21/22 Rx diazepam 5 mg tablet (Valium) 5 mg PO BID PRN anxiety #20 tabs 06/16/22 06/21/22 Rx gabapentin 300 mg capsule 300 mg PO TID 30 days #90 caps 06/16/22 06/21/22 Rx oxycodone 5 mg tablet 5 mg PO Q6H PRN pain #14 tabs 06/18/22 06/21/22 Rx cholecalciferol (vitamin D3) 125 5,000 unit PO DAILY 06/21/22 06/21/22 History mcg (5,000 unit) tablet Past Med/Surg History Medical History Cervical stenosis of spinal canal History of parotitis Lumbar spondylosis Migraine without aura Osteoarthritis Recurrent cold sores Rheumatic fever Sjogrens syndrome Surgical History History of hernia repair History of hysterectomy still w/ ovary History of kidney surgery L ureter transplant Status post cervical spinal fusion (01/20/18) Family History Mother Hypertension Breast cancer Diabetes Father No known health problems Denies family history of Ovarian cancer Prostate cancer Myocardial infarction Colorectal cancer Social History Smoking Status: Current every day smoker Tobacco Type: Cigarettes packs per day: 0.5; Cigarettes Per Day: 6; Second Hand Exposure: Yes; Do You Dip or Chew Tobacco: No; Hx Alcohol Use: Yes Alcohol type: beer Hx Substance Use: No Preferred Language: Georgian Communication Ability: Effective Visual Impairment: No Limitations Hearing Ability: Normal Operations Liaison Required: No Beliefs That Will Affect Care: None marital status: Current Living Situation: Spouse and Family current occupational status: employed Other Information That Helps Us Care for You: No Feels Safe at Home: Yes Safety Concerns: Feels Safe At This Time caffeine: Yes Dental Care, Regularly: Yes Physical Activity Frequency: Daily Seatbelt Use: always Assistive Devices: None Physical Exam Physical Exam: Patient is obvious distress. She has difficulty standing ambulating a distance. Weightbearing right lower extremity reproduces severe right sided radiculopathy. She has plus out of 5 bilateral plantar flexion dorsiflexion dense numbness to light touch and cold to the right anterior thigh compared to the left. She does have a 4/5 right quadriceps compared to the left with bedside testing. Results & Data Results & Data ([facility]) Vital Signs (Past 12 Hours) Vital Signs Temp Pulse Resp BP Pulse Ox O2 Del Method 06/22/22 07:41 36.8 C 66 16 128/82 95 Room Air 06/21/22 21:10 36.8 C 74 16 132/87 96 Code Status & VTE Plan VTE Prophylaxis Plan VTE Prophylaxis will be ordered: Yes
[2022-06-22] MEDS: GABAPENTIN 300 MG CAP PO SCH ×3 (08:31→20:10)
[2022-06-22] MEDS: DULoxetine HCL 60 MG CAP PO SCH (08:33)
[2022-06-22] MEDS: PANTOprazole 40 MG TAB PO SCH (08:33)
[2022-06-22] MEDS ORDERED: FAMOTIDINE 20 MG in SYRINGE 3 ML IV ONE (10:45)
--- NOTE | 2022-06-22 16:13 | Anesthesiology Consultation ---
Date of Service June 22, 2022 Assessment & Plan (1) Encounter for pre-operative examination: Chart Review Chart Review: principal investigator initiated Consults Requested none History Surgery Operation Date: 06/23/22 09:35 Proposed Procedures p L3-L4 Lumbar Decompression Fusion - León Mays DO Height/Weight Height: 5 ft 3 in Weight: 78.2 kg Allergies Allergy/AdvReac Type Severity Reaction Status Date / Time No Known Allergies Allergy Unknown Verified 06/21/22 15:16 Medications Home Medications Medication Instructions Recorded Confirmed Last Taken pantoprazole 40 mg tablet,delayed 40 mg PO DAILY #90 tabs 09/04/20 06/21/22 Unknown release duloxetine 30 mg capsule,delayed 30 mg PO DAILY 02/27/22 06/21/22 Unknown release duloxetine 60 mg capsule,delayed 60 mg PO DAILY 02/27/22 06/21/22 Unknown release diclofenac sodium 75 mg 75 mg PO BID PRN pain #60 tabs 06/04/22 06/21/22 Unknown tablet,delayed release baclofen 10 mg tablet 10 mg PO BID 30 days #60 tabs 06/16/22 06/21/22 Unknown diazepam 5 mg tablet (Valium) 5 mg PO BID PRN anxiety #20 tabs 06/16/22 06/21/22 Unknown gabapentin 300 mg capsule 300 mg PO TID 30 days #90 caps 06/16/22 06/21/22 Unknown oxycodone 5 mg tablet 5 mg PO Q6H PRN pain #14 tabs 06/18/22 06/21/22 Unknown cholecalciferol (vitamin D3) 125 5,000 unit PO DAILY 06/21/22 06/21/22 Unknown mcg (5,000 unit) tablet Active Medications Generic Name Dose Route Start Last Admin Trade Name Freq PRN Reason Stop Dose Admin Duloxetine HCl 60 mg 06/22/22 09:00 06/22/22 08:33 Duloxetine Hcl 60 Mg Cap PO 07/22/22 08:59 60 mg DAILY MAXWELL Administration Gabapentin 300 mg 06/21/22 21:00 06/22/22 14:14 Gabapentin 300 Mg Cap PO 07/21/22 20:59 300 mg TID MAXWELL Administration Hydromorphone HCl 1 mg 06/21/22 15:56 06/22/22 13:40 Hydromorphone Inj 1 Mg/Ml Syringe IV 07/05/22 15:55 1 mg Q3H PRN Administration severe pain (scale 7-10) Lactated Ringer's 1,000 mls @ 75 mls/hr 06/21/22 16:15 06/22/22 05:56 Lr IV 07/21/22 16:14 75 mls/hr .[id number] MAXWELL Administration Ondansetron HCl 4 mg 06/21/22 15:56 06/22/22 13:47 Ondansetron Inj 2 Mg/Ml 2 Ml Vial IV 07/21/22 15:55 4 mg Q6H PRN Administration Nausea &/or Vomiting Oxycodone HCl 5 - 10 mg 06/21/22 15:56 06/21/22 21:24 Oxycodone Hcl Ir 5 Mg Tab (Immediate Release) PO 07/05/22 15:55 10 mg Q4H PRN Administration mod to severe pain Pantoprazole Sodium 40 mg 06/22/22 09:00 06/22/22 08:33 Pantoprazole 40 Mg Tab PO 07/22/22 08:59 40 mg DAILY MAXWELL Administration NPO Date Last Intake of Fluids: 06/21/22 Time Last Intake of Fluids: 23:59 Date Last Intake of Solids: 06/14/22 Time Last Intake of Solids: 23:59 Past Medical History Medical History Cervical stenosis of spinal canal History of parotitis Lumbar spondylosis Migraine without aura Osteoarthritis Recurrent cold sores Rheumatic fever Sjogrens syndrome Past Family History Family History Mother Hypertension Breast cancer Diabetes Father No known health problems Denies family history of Ovarian cancer Prostate cancer Myocardial infarction Colorectal cancer Past Surgical History Surgical History History of hernia repair History of hysterectomy still w/ ovary History of kidney surgery L ureter transplant Status post cervical spinal fusion (01/20/18) Social History Smoking Status: Current every day smoker tobacco type: cigarettes Smoking cigarettes per day: 6 Do You Dip or Chew Tobacco: No Hx Alcohol Use: Yes Alcohol type: beer alcohol intake frequency: a few times a month Hx Substance Use: No Physical Exam Vital Signs Last Vital Signs Temp 98.4 F 06/22/22 14:43 Pulse 93 H 06/22/22 14:43 Resp 16 06/22/22 14:43 BP 131/81 06/22/22 14:43 Pulse Ox 91 06/22/22 14:43 O2 Del Method 06/22/22 14:43 Testing Laboratory Results 06/21/22 13:43 06/21/22 13:43 Urine Color Yellow 06/21/22 16:20 Urine Appearance Clear (Clear) 06/21/22 16:20 Urine pH 7.0 (4.5-7.5) 06/21/22 16:20 Ur Specific [place] 1.011 (1.000-1.030) 06/21/22 16:20 Urine Protein Negative (Negative) 06/21/22 16:20 Urine Glucose (UA) Negative (Negative) 06/21/22 16:20 Urine Ketones Negative (Negative) 06/21/22 16:20 Urine Nitrite Negative (Negative) 06/21/22 16:20 Ur Leukocyte Esterase Negative (Negative) 06/21/22 16:20 Electrocardiogram Date: 06/14/22 Findings: + NSR @ (96 bpm)
[2022-06-22] MEDS: oxyCODONE HCL IR 5 MG TAB (IMMEDIATE RELEASE) PO PRN ×2 (16:14→22:33)
[2022-06-22] MEDS: diazePAM 5 MG TABLET PO PRN (22:33)
[2022-06-23] MEDS: HYDROmorphone INJ 1 MG/ML SYRINGE IV PRN ×6 (00:58→12:48)
[2022-06-23] MEDS: LORazepam 0.5 MG TAB PO PRN ×2 (01:07→03:16)
--- NOTE | 2022-06-23 07:33 | History & Physical Bridge Note ---
Date of Service June 23, 2022 History & Physical Bridge Note I have examined the patient, reviewed the History & Physical and in the interval since the performance of the History & Physical I have noted the following changes of clinical significance: Patient continues to have severe right leg radiculopathy requiring IV narcotics to control her pain. She has dense numbness along the right L3 dermatome consistent with her disc herniation and progressive motor deficit. Subsequently recommending emergent lumbar decompression fusion L3-L4 to help alleviate her pain and prevent permanent neurodeficit.
[2022-06-23] MEDS ORDERED: BUPIVACAINE/EPINEPHRINE 0.25% 1:200,000 30 ML VIAL ONE (09:58)
[2022-06-23] MEDS ORDERED: ceFAZolin 330 MG/ML 1 GM VIAL ONE (09:58)
[2022-06-23] MEDS ORDERED: PROPOFOL IV EMULSION 10 MG/ML 20 ML VIAL IV ONE (10:01)
[2022-06-23] MEDS ORDERED: MIDAZOLAM HCL 1 MG/ML 2ML VIAL ONE (10:01)
[2022-06-23] MEDS ORDERED: ROCURONIUM BROMIDE 10 MG/ML 5 ML VIAL IV ONE (10:01)
[2022-06-23] MEDS ORDERED: fentaNYL citrate 100 MCG/2 ML VIAL ONE (10:01)
[2022-06-23] MEDS ORDERED: PROMETHAZINE HCL 12.5 MG in SODIUM CHLORIDE 0.9% 50 ML IV PRN ×2 (10:01→13:29)
[2022-06-23] MEDS ORDERED: LIDOCAINE 2% MPF LOCAL 5 ML VIAL INFIL ONE (10:01)
[2022-06-23] MEDS ORDERED: ONDANSETRON INJ 2 MG/ML 2 ML VIAL IV PRN ×2 (10:01→13:29)
[2022-06-23] MEDS ORDERED: ATROPINE SULFATE 0.1 MG/ML 10ML SYR IV PRN (10:01)
[2022-06-23] MEDS ORDERED: ePHEDrine sulfate 50 MG/ML AMP ONE (10:38)
[2022-06-23] MEDS ORDERED: PHENYLEPHRINE HCL 10 MG/ML VIAL ONE (10:48)
[2022-06-23] MEDS ORDERED: HYDROmorphone INJ 2 MG/ML SYR/VIAL ONE (11:06)
[2022-06-23] MEDS ORDERED: GLYCOPYRROLATE 0.2 MG/ML VIAL ONE (11:16)
[2022-06-23] MEDS ORDERED: DEXAMETHASONE SOD INJ 4 MG/ML VIAL ONE (11:16)
[2022-06-23] MEDS ORDERED: ONDANSETRON INJ 2 MG/ML 2 ML VIAL ONE ×2 (11:16)
[2022-06-23] MEDS ORDERED: NEOSTIGMINE METHYLSULFATE 1 MG/ML 10ML VIAL ONE (11:16)
--- NOTE | 2022-06-23 11:45 | Operative Report ---
Post Operative Report Pre & Post Diagnosis Operation Date: 06/23/22 09:35 Pre-Op Diagnosis: Right Lumbar Radiculopathy with foraminal disc herniation L3-L4 Post-Op Diagnosis: Same I identified the patient and participated in the time-out.: Yes Procedure Operation Date: 06/23/22 09:35 Actual Procedures #1 lumbar decompression fusion facetectomy foraminotomies excision foraminal disc herniation at L3-L4. #2 posterior spinal fusion L3-L4. #3 posterior spinal fusion L3-L4 per #4 interbody fusion L3-L4. #5 placement of Spira 14 x 26 mm cage at L3-L4. #6 placement locally harvested morselized autograft in the posterior gutters. #7 placement of I factor combined V toss in the interbody space and posterior gutters. Surgeon León Mays, [employer] Nai Retana Estimated Blood Loss 150 Findings Consistent with Post-Op Diagnosis Specimens None Indications This is a 57-year-old female who presents with several weeks of progressive severe L3 radiculopathy. She was diagnosed with a foraminal disc herniation failed to improve with physical therapy requiring IV narcotics to control her pain and demonstrating progressive neuro deficit subsequently she is here for emergent decompression fusion. Description of Procedure Patient was met with identified informed consent obtained. Patient was then taken to the operative suite underwent a patient placed in a prone position the [place] table top Sammy frame. All bony prominences well-padded eyes inspected to ensure no external pressure placed upon. This point lumbar spine was prepped and draped in the normal sterile fashion. Sharp dissection with assistance of bradycardia was performed down to and exposing the lamina and transverse processes of L3 and L4 bilaterally. From caudal to cephalad fashion a laminectomy of L3-L4 was performed including complete facetectomy on the right to expose a severely compressed exiting L3 nerve root. Massive fragments of free disc material were noted within the foramen directly under the root. They removed in their entirety. Pedicle screws were then placed at L3 and L4 bilaterally with assistance of fluoroscopy and properly sized jamie placed. By way of a transforaminal approach on the right a complete discectomy of L3-L4 was performed endplates curetted to subcortically bone and a 14 x 26 mm Spira cage filled with I factor tapped in position. The rods were then locked into final position bilaterally. The transverse processes of L3-L4 burred to subcortical bleeding bone. I factor combined with V toss and locally harvested morselized autograft was placed in the posterior gutters. 15 round DURAN drain inserted. Incision was then closed with 1 Vicryl to fascia 2-0 Vicryl subcutaneously and 4 Monocryl for final skin closure. Steri-Strip sterile dressings placed. Patient waken taken PACU stable condition. Please note spinal cord monitoring was utilized at the procedure no changes noted. Lastly Nai Retana was present out the entire surgery involved the patient positioning complex portions of the surgery and fascial closure. I attest to the content of the Intraoperative Record and any orders documented therein. Any exceptions are noted below.
[2022-06-23] MEDS ORDERED: FLOSEAL HEMOSTATIC MATRIX 10ML TOP ONE (11:50)
--- NOTE | 2022-06-23 13:02 | Anesthesiology Progress Note ---
Date of Service June 23, 2022 Anesthesia Post Procedure Vital Signs Vital Signs: Temp Pulse Resp BP BP Pulse Ox O2 Del Method 06/23/22 12:50 65 18 124/65 96 Oxymask 06/23/22 12:40 77 17 111/67 96 Oxymask 06/23/22 12:30 87 13 127/69 100 Oxymask 06/23/22 12:20 96 H 22 98 Oxymask 06/23/22 12:20 23 124/81 99 Oxymask 06/23/22 12:10 98 H 23 97/73 L 99 Oxymask 06/23/22 12:02 36 C L 110 H 19 135/67 98 Oxymask 06/23/22 08:59 36.6 C 70 18 136/78 96 Room Air 06/23/22 08:02 Room Air 06/23/22 07:38 36.7 C 67 16 131/78 95 Room Air 06/22/22 22:58 36.8 C 72 16 138/86 94 Room Air 06/22/22 14:43 36.9 C 93 H 16 131/81 91 Room Air O2 Flow Rate 06/23/22 12:50 2 06/23/22 12:40 2 06/23/22 12:30 3 06/23/22 12:20 3 06/23/22 12:20 6 06/23/22 12:10 6 06/23/22 12:02 6 06/23/22 08:59 06/23/22 08:02 06/23/22 07:38 06/22/22 22:58 06/22/22 14:43 Pain Intensity Right Lower Back: Pain Intensity: 3 Right Leg: Pain Intensity: 6 Back: Pain Intensity: 8 Transfer of Care Handoff Completed per policy Notes Mental Status: alert / awake / arousable Patient Amnestic to Procedure: Yes Nausea / Vomiting: adequately controlled Pain: adequately controlled Airway Patency, RR, SpO2: stable & adequate BP & HR: stable & adequate Hydration State: stable & adequate Anesthetic Complications: no major complications apparent
[2022-06-23] MEDS ORDERED: HYDROmorphone INJ 1 MG/ML SYRINGE IV PRN (13:29)
[2022-06-23] MEDS ORDERED: diphenhydrAMINE Capsule 25 MG CAP PO PRN (13:29)
[2022-06-23] MEDS ORDERED: LORazepam 0.5 MG in SYRINGE 0.25 ML IV PRN (13:29)
[2022-06-23] MEDS ORDERED: bisacodyL 10 MG SUPP PR PRN (13:29)
[2022-06-23] MEDS ORDERED: traMADol HCL 50 MG TABLET PO PRN (13:29)
[2022-06-23] MEDS ORDERED: HYDROmorphone INJ 0.5 MG/0.5 ML SYR IV PRN (13:29)
[2022-06-23] MEDS ORDERED: NALOXONE HCL 0.4 MG/1 ML VIAL/CARP IV PRN (13:29)
[2022-06-23] MEDS ORDERED: ONDANSETRON 4 MG OD TAB PO PRN (13:29)
[2022-06-23] MEDS ORDERED: LORazepam 0.5 MG TAB PO PRN (13:29)
[2022-06-23] MEDS ORDERED: MAGNESIUM HYDROXIDE SUSP 30 ML UDC PO PRN (13:29)
[2022-06-23] MEDS ORDERED: hydrOXYzine HCl 25 MG TAB PO PRN (13:29)
[2022-06-23] MEDS ORDERED: METOCLOPRAMIDE HCL INJ 5 MG/ML 2 ML VIAL IV PRN (13:29)
[2022-06-23] MEDS ORDERED: ACETAMINOPHEN 1,000 MG/100 ML VIAL IV PRN (13:29)
[2022-06-23] MEDS ORDERED: ACETAMINOPHEN 500 MG TAB PO PRN (13:29)
[2022-06-23] MEDS ORDERED: FAMOTIDINE 20 MG TAB PO PRN (13:29)
[2022-06-23] MEDS ORDERED: SOD PHOSPHATE/SOD BIPHOSPHATE ENEMA 132 ML BTL PR PRN (13:29)
[2022-06-23] MEDS: LACTATED RINGER'S 1,000 ML IV SCH ×2 (13:44→17:55)
[2022-06-23] MEDS: GABAPENTIN 300 MG CAP PO SCH ×3 (13:44→22:21)
[2022-06-23] MEDS: PANTOprazole 40 MG TAB PO SCH (13:55)
[2022-06-23] MEDS: DULoxetine HCL 60 MG CAP PO SCH (13:56)
--- NOTE | 2022-06-23 14:34 | Fluoroscopy Report ---
[place] lumbar spine 2-3V CLINICAL HISTORY: L3-4 DFI COMPARISON STUDY: Lumbar spine MRI June 14, 2022. FLUOROSCOPY TIME: 15 seconds. FLUOROSCOPIC IMAGES: 2 FINDINGS: Fluoroscopy was provided during L3-L4 discectomy, posterior decompression and bilateral ped icle screw fusion. Hardware is intact. IMPRESSION: Fluoroscopy provided during L3-L4 discectomy, posterior decompression and bilateral pedi luis screw fusion. ACT 112: Negative or not required by law. Electronically signed by: Zack Guerin M.D. 06/23/2022 2:32 PM
[2022-06-23] MEDS: oxyCODONE HCL IR 5 MG TAB (IMMEDIATE RELEASE) PO PRN (14:38)
[2022-06-23] MEDS: ceFAZolin 2000MG 2,000 MG/15 ML SYR IV SCH (18:25)
[2022-06-23] MEDS: DOCUSATE SODIUM/SENNA 50/8.6MG TAB PO SCH (22:20)
[2022-06-23] MEDS: diazePAM 5 MG TABLET PO PRN (22:27)
[2022-06-24] MEDS: ceFAZolin 2000MG 2,000 MG/15 ML SYR IV SCH (03:05)
[2022-06-24] MEDS: LACTATED RINGER'S 1,000 ML IV SCH ×2 (03:06→09:49)
[2022-06-24] MEDS: POLYETHYLENE (MIRALAX) 17 GM PACK PO SCH ×3 (06:37→18:38)
[2022-06-24 07:48] LABS: Basophils # (auto) 0.02 K/uL (0-0.2); Basophils % (auto) 0.1 %; Eosinophils # (auto) 0.04 K/uL (0-0.50); Eosinophils % (auto) 0.3 %; Hematocrit (blood only) 37.1 % (34.1-44.9); Hemoglobin 12.1 g/dl (12.0-16.0); Immature Granulocytes # (auto) 0.08 K/uL (0.00-0.02); Immature Granulocytes % (auto) 0.6 %; Lymphocytes # (auto) 2.19 K/uL (1.2-3.4); Lymphocytes % (auto) 15.5 %; Mean Corpuscular Hemoglobin 32.5 pg (25.0-34.0); Mean Corpuscular Hgb Conc 32.6 g/dL (32.0-36.0); Mean Corpuscular Volume 99.7 fL (80.0-100.0); Mean Platelet Volume 9.3 fL (9.4-12.3); Monocytes # (auto) 1.47 K/uL (0.24-0.82); Monocytes % (auto) 10.4 %; Neutrophils # (auto) 10.36 K/uL (1.4-6.5); Neutrophils % (auto) 73.1 %; Platelet Count 232 K/uL (130-400); RDW Coefficient of Variation 12.8 % (11.5-14.5); RDW Standard Deviation 47.7 fL (36.4-46.3); Red Blood Count 3.72 M/uL (3.93-5.22); White Blood Count 14.16 K/ul (4.8-10.8)
[2022-06-24 08:20] LABS: BUN Creatinine Ratio 21.1 (10-20); Calcium 9.4 mg/dl (8.5-10.1); Creatinine Clr Calc Pharmacy 86.6 ml/min; Est GFR (African American) 109.6 ml/min; Est GFR (Non-African American) 94.6 ml/min; Potassium 3.4 mmol/L (3.5-5.1)
[2022-06-24] MEDS: PANTOprazole 40 MG TAB PO SCH (08:39)
[2022-06-24] MEDS: DULoxetine HCL 30 MG CAP PO SCH (08:40)
[2022-06-24] MEDS: dexAMETHasone 6 MG in SYRINGE 0 ML IV SCH (08:40)
[2022-06-24] MEDS: GABAPENTIN 300 MG CAP PO SCH ×3 (08:40→22:27)
[2022-06-24] MEDS: DULoxetine HCL 60 MG CAP PO SCH (08:40)
--- NOTE | 2022-06-24 08:43 | Orthopedic Progress Note ---
Date of Service June 24, 2022 Assessment & Plan (1) Neural foraminal stenosis of lumbar spine: Plan: Patient will start physical therapy today. Continue with pain control. Continue with bowel regimen. DVT prophylaxis is in the form of teds and SCDs. Maintain DURAN drain. Anticipate discharge home within the next 24 to 48 hours. Admission and Anticipated Discharge Date Admission Date: June 21, 2022 Nedra Cortez is postoperative day 1 status post TLIF L3-4. She feels amazing. Right lower extremity pain has resolved. Still has some modest numbness. DURAN drain output last shift was 60 cc. H&H is morning are 12.1 and 37.1 respectively. She has been up and ambulatory to the restroom over the night. Review of Systems Review of Systems: All systems reviewed & are unremarkable except as noted in HPI & below Physical Exam Physical Exam: She is alert and oriented x3 Lying in bed in no acute distress Lumbar dressing is clean dry and intact with functioning DURAN drain Strength is intact bilateral lower extremity Calf soft nontender bilaterally Results & Data ([facility]) Vital Signs (Past 12 Hours) Vital Signs Temp Pulse Resp BP Pulse Ox O2 Del Method 06/24/22 08:00 36.9 C 84 16 102/65 97 Room Air 06/24/22 06:00 37.3 C 79 16 104/66 96 Room Air 06/24/22 04:15 37.2 C 75 16 106/65 94 Room Air 06/24/22 02:18 37.1 C 80 16 110/68 96 Room Air 06/24/22 00:16 37.2 C 83 18 137/77 96 Room Air
[2022-06-24] MEDS: oxyCODONE HCL IR 5 MG TAB (IMMEDIATE RELEASE) PO PRN (09:38)
[2022-06-24] MEDS: ALUMINUM/MAGNESIUM SUSP 30 ML UDC PO PRN ×2 (11:01→18:38)
[2022-06-24] MEDS ORDERED: CALCIUM CARBONATE 500 MG CHEWABLE TAB PO PRN (16:49)
[2022-06-24] MEDS: DOCUSATE SODIUM/SENNA 50/8.6MG TAB PO SCH (22:26)
[2022-06-25] MEDS: POLYETHYLENE (MIRALAX) 17 GM PACK PO SCH ×2 (00:17→05:35)
[2022-06-25] MEDS: LACTATED RINGER'S 1,000 ML IV SCH (07:16)
[2022-06-25] MEDS: oxyCODONE HCL IR 5 MG TAB (IMMEDIATE RELEASE) PO PRN (08:23)
[2022-06-25] MEDS: GABAPENTIN 300 MG CAP PO SCH (08:23)
[2022-06-25] MEDS: dexAMETHasone 6 MG in SYRINGE 0 ML IV SCH (08:23)
[2022-06-25] MEDS: PANTOprazole 40 MG TAB PO SCH (08:24)
[2022-06-25] MEDS: DULoxetine HCL 60 MG CAP PO SCH (08:24)
[2022-06-25] MEDS: DULoxetine HCL 30 MG CAP PO SCH (08:24)
--- NOTE | 2022-06-25 11:19 | Discharge Summary ---
Date of Service June 25, 2022 Admission HPI Per Admitting Provider This is a 57-year-old female well-known to me that has not presented to emergency room 3 times with severe right leg pain. It did require short hospital admission for pain control and pain management consultation. Unfortunately continues to have severe L3 radiculopathy with numbness and pain in the right leg. Is a 10 out of 10. She is having difficulty controlling her symptoms with narcotic medications and has expressed concern regarding addiction. She does describe deficits with a sending descending stairs with quadricep weakness. Left lower extremity is asymptomatic. She is attempted a course of physical therapy without improvement in her pain. Principal Diagnosis Foraminal disc herniation L3-L4 on the right Discharge Data Allergies Allergy/AdvReac Type Severity Reaction Status Date / Time No Known Allergies Allergy Unknown Verified 06/21/22 15:16 Consultations 06/21/22 13:33 ED Decision to Admit Stat 06/21/22 15:56 Consult Internal Medicine Routine Procedures Performed Operation Date: 06/23/22 09:35 Actual Procedures p L3-L4 Lumbar Decompression and Fusion, Spinal Cord Monitoring(Not Applicable) - León Mays DO Ordered Studies 06/23/22 09:35 [place] lumbar spine 2-3V Routine Hospital Course (1) Right lumbar radiculopathy: Was admitted with markedly worsening leg pain and progressive weakness and underwent emergent decompression fusion. She tolerates well and postoperatively required very little pain medication and underwent physical therapy without difficulty. Postop day #2 pain was continue to improve. DURAN drain decreasing appropriate. Excellent strength testing. Separately discharged home. Discharge orders instructions from the chart for further view. Total Time Total Time Spent Total Time Spent (In Minutes): 20 minutes Discharge Plan Discharge Items Patient Disposition: Home - Self-Care Reason For Visit: LUMBAR RADICULAPTHY Discharge Diagnosis: Further discrimination with radiculopathy Activity: As commented below Non-emergency contact: Primary Care Provider Call non-emergency contact if: you have any medication questions Follow-up/Referrals: uArora Lockwood DO [Primary Care Provider] - Diet: Regular Addtl Attending Provider Instructions: ACTIVITY RECOMMENDATIONS: SELF CARE INSTRUCTIONS AFTER THORACIC/LUMBAR FUSIONS 1. You may walk to your tolerance. It is good exercise for your legs and back. Expect some back and intermittent leg aches and pains. 2. You may perform "counter-top" level activities (make a sandwich, anshul with a project, etc.). 3. No bending or lifting of more than 10 pounds or back twisting of any nature (roll like a log when turning in bed). 4. You may ride in a car for 20-30 minutes at a time. No driving until after your first visit with your doctor. 5. Frequent changes of position and restricting sitting to 30 minutes at a time will help limit the amount of back spasms and stiffness you may experience. 6. You may discontinue the use of ambulatory aids (cane, crutches, etc.) once your strength and confidence allow. 7. You may information security specialist the shower and let water strike your incision when you arrive home at least once daily. Do not take a tub bath, sit in a hot tub or go into a swimming pool until after your first recheck in the office. SPECIAL CARE INSTRUCTIONS: VERY IMPORTANT TO READ AND REVIEW A. Your surgical incision has been closed with a cosmetic suture under the skin that will dissolve in about 6 weeks. In 14 days, you can use a pair of clean scissors and cut the suture that is left outside of the skin at the ends of your incision. 1. The small skin tapes can be removed 7 days after surgery if they have not fallen off by that point. 2. You may keep the wound open to air as much as possible to promote healing after post-op day number 5 unless told otherwise by your doctor. 3. If you think the wound looks like it is becoming infected (redness or worsening drainage) and/or you are experiencing fever, chill or worsening back pain and muscle spasms, contact the office so that we may evaluate you as soon as possible. B. Complications are uncommon, but please contact us if you have any signs or symptoms of: 1. wound infection (fever higher than 102.5 degrees F, redness, separation of wound, drainage, or increasing pain from the incision) 2. blood clots in legs (pain, swelling, redness and warmth in legs) 3. urinary tract infection (fever higher than 102.5 degrees F, burning upon urination or increased frequency of urination) 4. nerve problems (inability to walk on your toes or heels, numbness, loss of bowel or bladder control) 5. any other symptoms that concern you C. Please call the office at if you have any concerns or questions about your operation or recovery. D. No smoking! Smoking drastically decreases the chance of a solid fusion. E. Do not take any anti-inflammatory medications (Indocin, Advil, Motrin, Aspirin, Naprosyn, etc.) as these may inhibit the chance of a solid fusion. Tylenol is okay to take for pain. MANAGING PAIN AFTER SPINAL SURGERY 1. Narcotic medication is intended for short-term use and will be provided for surgical pain. Surgical pain usually lasts for a period of 4-6 weeks. Narcotic medication includes Percocet, Vicodin, Darvocet, Tylenol #3 or Lortab. 2. Longer-term pain is more appropriately treated with non-narcotic medication such as Tylenol ES. 3. Muscle spasm is not appropriately treated with narcotics. Muscle relaxers such as Soma, Flexeril or Skelaxin can be used along with Tylenol ES. 4. Remember that we all live with some "aches and pains". This is not unusual or uncommon after an injury or as we get older. a. Back pain is expected and may include muscle spasms for 4 to 6 weeks after surgery. The pain should gradually improve. If the pain worsens for no apparent reason, please contact the office. b. Intermittent leg pain may also be experienced and should not be concerned about unless it worsens for no apparent reason. If so, please contact the office. 5. We will provide appropriate medication within the normal guidelines of their prescribed use. We will also be very cautious and aware of potential abuse and extended duration of patients' medication needs. a. Pain medications are for your comfort and to assist with sleep and rest so that the tissue can heal. They are not provided in order to return to normal activity and should not be used through the day. To do so or worsening pain at night can result from ongoing tissue damage and development of tolerance to the prescribed medicine. 6. Please allow 2-3 days to process refills. Prescriptions will not be mailed but must be picked up at the office. FOLLOW UP VISIT: Keep your scheduled follow-up appointment. Any questions, please call the office at . Pending Studies at Discharge: No Stand-Alone Forms: [employer], Smoking Cessation Medications and DC Order Prescriptions: New tramadol 50 mg tablet 50 mg PO Q6H PRN (Reason: pain, moderate) Qty: 30 0RF oxycodone 5 mg tablet 5 mg PO Q6H PRN (Reason: pain, severe) Qty: 30 0RF Continued pantoprazole 40 mg tablet,delayed release (DR/EC) 40 mg PO DAILY Qty: 90 1RF duloxetine 60 mg capsule,delayed release(DR/EC) 60 mg PO DAILY Rx Instructions: TAKE THIS MED ALONG WITH 30MG = 90MG DAILY. duloxetine 30 mg capsule,delayed release(DR/EC) 30 mg PO DAILY Rx Instructions: TAKE THIS MED ALONG WITH 60MG = 90 MG DAILY baclofen 10 mg Tablet 10 mg PO BID 30 Days Qty: 60 0RF gabapentin 300 mg Capsule 300 mg PO TID 30 Days Qty: 90 0RF diazepam [Valium] 5 mg tablet 5 mg PO BID PRN (Reason: anxiety) Qty: 20 0RF oxycodone 5 mg tablet 5 mg PO Q6H PRN (Reason: pain) Qty: 14 0RF cholecalciferol (vitamin D3) 125 mcg (5,000 unit) Tablet 5,000 unit PO DAILY Discontinued diclofenac sodium 75 mg tablet,delayed release (DR/EC) 75 mg PO BID PRN (Reason: pain) Qty: 60 0RF Rx Instructions: TAKEE THIS MED WITH FOOD Discharge Orders: Discharge Order (Routine); Ordered 06/25/22 Ordered By: León Mays Admission Data Admit Date/Time: 06/21/22 14:28 Attending Provider: León Mays Admit Provider: León Mays Primary Care Provider: Aurora Lockwood. Other Providers: Klaus Heller ; León Mays ; Lamont Harden
== END 2022-06-25 13:00 | disposition home or self-care (01) | DRG 455 ==
LOC: ED 13:14 → 3N 14:28